=== PATIENT | male | born 1965 | race Caucasian/White ===

== ENCOUNTER 2024-10-15 17:55 | Observation (INO) | payer BC, SELFPAY ==
[2024-10-15] VITALS (18 sets, daily range): BP systolic 135–152; BP diastolic 90–103; PULSE 78–93; RESP 14–20; TEMP 36.4–36.8; O2SAT 95–98; BMI 28.3; BMI 26.7
--- NOTE | 2024-10-15 18:03 | ECG_ITS ---
APPROVED REPORT Exam: Resting ECG HR:90 bpm ECG Measurements Heart Rate 90 AXES UT 136 P 49 QRSd 142 QRS 33 QT 378 T 26 QTc 426 Conclusion SINUS RHYTHM RIGHT BUNDLE BRANCH BLOCK [120+ ms QRS DURATION, UPRIGHT V1, 40+ ms S IN I/aVL/V4/V5/V6] No STEMI Electronically signed by : SHON WEN, 10/16/2024 23:32:40
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
--- NOTE | 2024-10-15 18:26 | XR_ITS ---
PROCEDURE INFORMATION: Exam: XR Chest Exam date and time: 10/15/2024 6:20 PM Age: 59 years old Clinical indication: Pain; Chest pressure; Additional info: Chest pain since Saturday, PT stated he had a visit with his pcp today & they sent him to ED based upon ekg results. TECHNIQUE: Imaging protocol: Radiologic exam of the chest. Views: 2 views. COMPARISON: No relevant prior studies available. FINDINGS: Lungs: Mild scarring and atelectasis in the lower lungs. Pleural spaces: Unremarkable. No pleural effusion. No pneumothorax. Heart/Mediastinum: Unremarkable. No cardiomegaly. Bones/joints: Unremarkable. IMPRESSION: No acute findings.
--- OUTSIDE RECORDS SUMMARY | 2024-10-15 18:26 | XMS_ITS | Data Portability ---
Author Organization [facility] Address [address] [place] [address] Care Team Providers Care Data Support Specialist Name Role Phone PATRICIA VERA Primary Care Provider [phone] PATRICIA VERA Referring Provider Assessment No assessment recorded. Plan of Treatment Reminders Order Date Submit Date Provider Last Modified By Organization Details Last Modified Time Details Appointments None record ed. Lab None record ed. Referral None record ed. Procedures None record ed. Surgeries None record ed. Imaging None record ed. Medication Orders None record ed. Patient TargetsNo targets recorded. Patient InstructionsNo instructions recorded. Reason for Referral None Reported. Results Created Date Observation Date Name Description Value Unit Range Abnormal Flag Note LastModifiedBy Organization Detail LastModifiedTime 04/18/2004/01/2023 MRI, lumba r spine , w/o contr ast No observ ation record ed. [facility] Not Available 2022 12:11:31 04/18/20 23 04/01/2023 MRI, thora cic spine , w/o contr ast No observ ation record ed. [facility] Not Available 2022 12:11:31 05/10/20 23 05/10/2023 MRI, cervi keith spine , w/o contr ast [place] alessandra [place] [id number] [facility] [place] [address] Patien t Name: NA WHEATLEYJIMMY DAVON Nestor hall : [birth year] Patiseamus t 5 Orderi ng Provid er: GIA TIMONE Y EXAM DATE: 2022 EXAM: MR CERVIC AL W/O CONTRA ST HISTOR Y: 58-yea r-old male with pain and numbne ss in his left should er and arm. COMPAR JOAO: None. FINDIN GS: The cervic al spine is normal in alignm ent. There is no sublux ation. There is no fractu re or pathol ogic intrao sseous lesion . There is mild anteri or margin al osteop hytic spurri ng. No parasp inous soft tissue abnorm ality is identi fied. The visual ized spinal cord and print press operator ior fossa of the brain are normal in appear ance. The cranio cervic al juncti on is normal in appear ance. There are mild degene rative change s at C1-C2. C2-C3: There is a broad- based disc bulge/ protru ana and mild endpla te spurri ng. There is mild centra l canal stenos is. There is no neural forami nal stenos is. C3-C4: There is a broad- based disc protru ana and mild endpla te spurri ng. There is mild centra l canal stenos is. There is minima l neural forami nal narrow ing. C4-C5: There is a broad- based disc bulge/ protru ana and endpla te spurri ng. There is mild centra l canal stenos is. There is mild bilate ral neural forami nal narrow ing. C5-C6: There is a mild disc bulge, mild endpla te spurri ng and mild facet arthro aung. There is mild centra l canal stenos is. There is no neural forami nal stenos is. C6-C7: There is a mild disc bulge and mild endpla te spurri ng. There is mild centra l canal stenos is. There is no neural forami nal stenos is. C7-T1: This interv ertebr al disc is essent ially normal in appear ance. The visual ized thorac ic spine are essent ially normal in appear ance. IMPRES ANA: 1. There are mild diffus e degene rative change s in the cervic al spine with mild centra l canal stenos is from C2-C3 throug h C6-C7. Interp reted By: Kody alexis MD Electr onical ly Signed By: Kody alexis MD on 2022 9:27 AM [facility] [address] [place], [address], 05/13/2023 12:00:07 05/10/20 23 05/10/2023 nerve condu ction study /EMG, lower extre mity (PROC ) No observ ation record ed. jackielyle Harding MD [address] [facility] [address], [place], [address], 05/28/2023 14:53:58 05/10/2005/10/2023 XR, lumbo sacra l spine , 4 or more view [address] [address] Patiseamus t Name: NA Falcon : [birth year] Patiseamus t 5 Orderi ng Provid er: ANALI Hall EXAM DATE: 2022 EXAM: XR LUMBAR SPINE AP/LAT /FLEX/ EXT CLINIC AL INFORM ATION: Back pain. IMAGES PROVID ED: AP, latera l and coned- down views of the lumbar spine with additi onal latera l views in flexio n and extens ion. COMPAR JOAO: None. FINDIN GS: Verteb ral body height s are normal . Multil evel disc space reduct ion is seen with anteri or and latera l osteop hytes. No abnorm ality of alignm ent is seen. No instab ility is seen on flexio n or extens ion. Degene rative change s are seen in the facet joints . No radiog raphic eviden ce of injury is noted. IMPRES ANA: Degene rative change s of the lumbar spine. No instab ility. Interp reted By: Christi Walsh MD Electr onical ly Signed By: Christi Walsh MD on 2022 1:00 PM [email or web address] [facility] [address] [place], [address], 06/06/2023 12:20:42 05/22/20 23 05/22/2023 XR, cervi keith spine , 4 or 5 view [place] [address] [place] [address] [address]or [address] Name: NA Falcon : [birth year] [address] 5 Orderi ng Provid er: GIA TIMONE Y EXAM DATE: 2022 EXAM: XR CERVIC AL SPINE AP/LAT /FLEX/ EXT CLINIC AL INFORM ATION: Neck pain. IMAGES PROVID ED: Latera l views of the cervic al spine in flexio n and extens ion. COMPAR JOAO: None. FINDIN GS: FINDIN GS: Verteb ral body height s are normal . Disc spaces are well-m aintai dania. No abnorm ality of alignm ent is seen. No instab ility is seen on flexio n or extens ion. No radiog raphic eviden ce of injury is noted. IMPRES ANA: Normal radiog raphic series of the cervic al spine. No instab ility. Interp reted By: Christi Walsh MD Electr onical ly Signed By: Christi Walsh MD on 2022 11:12 AM [email or web address] [facility] [address], [address], 06/11/2023 16:30:01 06/14/20 23 06/14/2023 MR brain and [facility] [address] [facility] [place] [address] [address]or [address] Name: NA Falcon : [birth year] [address] 5 Orderi ng Provid er: GIA TIMONE Y EXAM DATE: 2022 EXAM: MR BRAIN AND IAC W/WO CONTRA ST HISTOR Y: Left-s ided numbne ss COMPAR JOAO: None. The patien t did not requir e sedati on for this exam. A baseli ne serum creati nine with eGFR was obtain ed prior to inject ion of contra st medium due to the patien ts risk factor s for AMY. Calcul ated eGFR at time of exam was GFR>90 FINDIN GS: The ventri cles are symmet samia, normal in size. No substa ntial atroph y. There is no mass, mass effect , or midlin e shift. There is no abnorm al extra- axial fluid, intrac ranial hemorr marely, or infarc tion. The diffus ion weight ed sequen chantal are normal . There are no signif icant perive ntricu lar white matter change s. After intrav enous admini strati on of 7.[address] ([facility] [address]-0 1), there is no abnorm al enhanc ement in the brain. There is no mass or abnorm al enhanc ement along the crania l nerves or in the software intern al audito ry canals . The software intern al caroti d and basila r flow-v oids are normal . There is minima l mucosa l thicke cm in the parana toney sinuse s. IMPRES ANA: 1. No signif icant intrac ranial findin g Interp reted By: Yousif Monte MD Electr onical ly Signed By: Yousif Monte MD on 2022 1:48 PM [facility] [address] [place], [address], 07/03/2023 22:11:34 Result Notes None recorded. Procedures Surgical History Date Name Laterality Status Provider Name and Address Organization Details Recorded Time 997 reconstruction of nose completed [facility] 04/17/2023 14:49:08 980 repair of inguinal hernia completed [facility] 04/17/2023 14:48:54 Imaging Results Imaging Date Name Status LastModified by Organiz ation Details LastModified Time 04/01/2023 MRI, lumbar spine, w/o contrast completed [facility] Information not available 04/18/2023 12:11:31 04/01/2023 MRI, thoracic spine, w/o contrast completed [facility] Information not available 04/18/2023 12:11:31 05/10/2023 MRI, cervical spine, w/o contrast [facility] [address] [place], [address], 05/13/2023 12:00:07 05/10/2023 nerve conduction study/EMG, lower extremity (PROC) completed jose l Harding MD [address] [facility] [address], [place], [address], 05/28/2023 14:53:58 05/10/2023 XR, lumbosacral spine, 4 or more view completed [email or web address] [facility] [address] [place], [address], 06/06/2023 12:20:42 05/22/2023 XR, cervical spine, 4 or 5 view completed [email or web address] [facility] [address] [place], [address], 06/11/2023 16:30:01 06/14/2023 MR brain and IAC w/wo contrast completed [facility] [address] [place], [address], 07/03/2023 22:11:34 Procedure Notes None recorded. Medical Equipment None Reported. Allergies Allergen ID Allergen Name Allergen Category Reaction Reaction Severity Criticality Documentation Date Start Date Code Code System Note Provider Name and Address Organization Details Recorded Time 324729 Iodinated contrast media (substanc e) medicatio n Not available Not available Not available 05/25/20162013 71883 2003 SNOMED Comme nt: Creat ed By: Evangelist Bethea ca;Cr eated Date: 2013 2:55: 36 PM; Not Available [facility] 06:21:00 984054 iodine medicatio n Not available Not available Not available 04/17/2023 5933 RxNorm Lucinda Carrion [facility] 3 14:47:32 Medications Name Sig Start Date Stop Date Status Note LastModified by Organization Details LastModified Time cyclobenza chrissy 10 mg tablet Daily active Frequency : daily;Med ication Descripti on: cyclobenz aprine; Route:ora l; refills:0 Not Available Not Available Not Available prednisone 10 mg tablet TAKE 1 TABLET BY MOUTH 2 TIMES PER DAY active Not Available Not Available No t Available cetirizine 10 mg tablet active Medicatio n Descripti on: cetirizin e; Route:ora l; refills:0 Not Available Not Available Not Available glipizide ER 10 mg tablet, extended release 24 hr TAKE 1 TABLET BY MOUTH DAILY. active Not Available Not Available No t Available prednisone 20 mg tablet TAKE 1 TABLET BY MOUTH TWO TIMES DAILY active Not Available Not Available No t Available metformin 850 mg tablet TAKE 1 TABLET BY MOUTH THREE TIMES DAILY active Not Available Not Available No t Available Nexium 40 mg capsule,de layed release TAKE 1 CAPSULE BY MOUTH ONCE DAILY active Not Available Not Available No t Available metronidaz ole 500 mg tablet TAKE 1 TABLET BY MOUTH THREE TIMES DAILY active Not Available Not Available No t Available Benadryl 25 mg tablet Bedtime active Duration: 1 day;Instr uctions: Take one capsule at noon and in the evening the day prior to procedure and then take one capsule the morning of procedure .;Frequen cy: hs;Medica tion Descripti on: diphenhyd ramine; Dosage:as directed; Route:ora l; refills:0 ; Quantity: 3 tablet Not Available Not Available Not Available ciprofloxa amy 500 mg tablet TAKE 1 TABLET BY MOUTH 2 TIMES DAILY active Not Available Not Available No t Available tramadol 50 mg tablet Daily active Frequency : daily;Med ication Descripti on: tramadol; Route:ora l; refills:0 Not Available Not Available Not Available simvastati n 40 mg tablet Daily active Frequency : daily;Med ication Descripti on: simvastat in; Route:ora l; refills:0 Not Available Not Available Not Available ropinirole 0.5 mg tablet TAKE 1 TABLET BY MOUTH TWO TIMES DAILY active Not Available Not Available No t Available lisinopril 10 mg tablet TAKE 1 TABLET BY MOUTH DAILY. active Not Available Not Available No t Available diclofenac sodium 75 mg tablet,del ayed release TAKE 1 TABLET BY MOUTH TWICE DAILY NEEDED active Not Available Not Available No t Available amoxicilli n 875 mg-potassi um clavulanat e 125 mg tablet TAKE 1 TABLET BY MOUTH TWICE DAILY. active Not Available Not Available No t Available escitalopr am 20 mg tablet TAKE 1 TABLET BY MOUTH ONCE DAILY. active Not Available Not Available No t Available Lexapro 10 mg tablet Daily active Duration: 30 days;Freq uency: daily;Med ication Descripti on: escitalop aurea; Dosage:1; Route:ora l; refills:0 ; Quantity: 30 tablet Not Available Not Available Not Available pregabalin 200 mg capsule TAKE 1 CAPSULE BY MOUTH TWO TIMES DAILY active Not Available Not Available No t Available Lyrica 75 mg capsule Two times a day active Frequency : bid;Medic ation Descripti on: pregabali n; Route:ora l; refills:0 Not Available Not Available Not Available Januvia 100 mg tablet TAKE 1 TABLET BY MOUTH DAILY active Not Available Not Available No t Available BD Ultra-Fine Katie Pen Needle 32 gauge x USE DIRECTED. active Not Available Not Available No t Available sodium,pot assium,mag sulfates 17.5 gram-3.13 gram-1.6 gram oral soln TAKE DIRECTED BY DR. VEGA''S OFFICE active Not Available Not Available No t Available Tradjenta 5 mg tablet TAKE 1 TABLET BY MOUTH DAILY. active Not Available Not Available No t Available Victoza 3-Colin 0.6 mg/0.1 mL (18 mg/3 mL) subcutaneo us pen injector INJECT 1.8 MG SUBCUTANE OUSLY ONCE DAILY active Not Available Not Available No t Available Farxiga 10 mg tablet TAKE 1 TABLET BY MOUTH DAILY active Not Available Not Available No t Available Mounjaro 7.5 mg/0.5 mL subcutaneo us pen injector INJECT DIRECTED ONCE WEEKLY active Not Available Not Available No t Available Mounjaro 5 mg/0.5 mL subcutaneo us pen injector INJECT ONCE WEEKLY DIRECTED. active Not Available Not Available No t Available Mounjaro 2.5 mg/0.5 mL subcutaneo us pen injector INJECT 2.5 MG SUBCUTANE OUSLY ONCE WEEKLY active Not Available Not Available No t Available Ozempic 0.25 mg or 0.5 mg (2 mg/3 mL) subcutaneo us pen injector INJECT 0.25MG ONCE WEEKLY FOR 4 WEEKS THEN INCREASE TO 0.5 MG EVERY WEEK active Not Available Not Available No t Available Vitals Date Recorded Body height Body mass index (BMI) Body weight Systolic blood pressure Diastolic blood pressure Provider Name and Address Organization Details Last Updated DateTime 04/17/2023 175.26 cm 27.9 kg/m2 17237.9 6 g 120 mm[Hg] 80 mm[Hg] [facility] 14:47:15 Date Recorded Body height Body mass index (BMI) Body weight Systolic blood pressure Diastolic blood pressure Provider Name and Address Organization Details Last Updated DateTime 05/22/2023 175.26 cm 27.9 kg/m2 24545.9 6 g 120 mm[Hg] 80 mm[Hg] [facility] 08:49:57 Social History None recorded. Functional Status None recorded. Mental Status None recorded. Family History Relationship Description Onset Age of this Age Resolved Age Notes LastModified by Organization Details LastModified Time Unspecified Relation Hypertensive disorder [email or web address] Not available 14:47:51 Unspecified Relation Heart disease [email or web address] Not available 14:48:08 Unspecified Relation Acute stroke [email or web address] Not availabl e 04/17/2023 14:48:17 Medical History No medical history recorded. Past Encounters Encounter ID Performer Location Encounter Start Date Encounter Closed Date Diagnosis/Indication Diagnosis SNOMED-CT Code Diagnosis ICD10 Code Diagnosis Note [id number] GIA ABRAHAM MD [facility] [address] [place] [address] 04/17/2023 13:44:29 04/18/2023 04:29:48 Lumbar radiculopathy [id number] M54.16 Unfortmeme hurley we are unable to view his lumbar MRI as both thoracic MRIs were downloaded onto the 2 discs. We were able to review the report. They will obtain a new lumbar MRI disc for us. I would like for him to undergo lower extremity nerve conduction studies due to his ongoing neuropathy . I will also like to obtain an MRI of his cervical spine as he is hyperrefle xic with paresthesi as in his hand. I will get cervical AP lateral flexion-ex tension x-rays as well as lumbar flexion-ex tension x-rays. We will have him return after the studies are available to us to review them and discuss and formulate a management plan. I have answered all his questions. He is happy with the management plan. [id number] GIA ABRAHAM MD [facility] [address] [place] [address] 05/22/2023 08:36:10 05/26/2023 04:08:08 Lumbar radiculopathy [id number] M54.16 Long discussion with him and his today. He has significan t hemorrhage in the right eye and they noted they have had an optometris t state he has hemorrhage in back of eye. I will refer him for a formal ophtho eval. I will also have him undergo a brain MRI with the facial numbness and hyperrefle kamilah of upper extremitie s. If all clear and they are agreeable, we will proceed with lumbar L4-5 decompress ion/diskec zoila. I have answered all of their questions. They are happy with management plan. Health Concerns Section Related Observation LastModified by Organization Detai ls LastModified Time None Recorded Concern Status LastModified by Organization Details LastModified Time None Recorded Advance Directives Directive None Recorded Payers Encounter Date Sequence Insurance Name Policy Number Policy Santana Covered Member ID Santana Member ID Guarantor Name 04/17/2023 1 [place] [employer] BLUE ACCESS (PPO) [id number] Sarai Weber [id number] Weber 05/22/2023 1 [place] [employer] [place]) [id number] Sarai Weber [id number] Weber Notes Date Note Type Note Provider Name and Address Organization Details Recorded Time 04/17/2023 text/html Patient is a 58-year-old gentleman here today in neurosurgical consultation for low back and lower extremity pain. He states he has had progressive low back pain for many years but its been significantly worse over the last several months. He states it radiates mainly into his left leg. He has burning sharp sensation radiating down mainly the anterior lateral thigh with burning dysesthesias into his foot. He is a diabetic and states he was diagnosed with neuropathy. He states standing makes the pain worse. Stairs are difficult. He is unable to sleep secondary to the pain. He did physical therapy but was unable to complete this due to the pain. He is not received any pain management. No other neurologic complaints. Imaging: I personally reviewed his thoracic MRI which demonstrates a patent central canal and some mild to moderate disc degeneration and unfortunately his lumbar MRI was not uploaded onto the disc but did demonstrate moderate central canal stenosis at L3-4 and L4-5 with significant facet arthropathy GIA ABRAHAM MD [facility] [place], [address], [facility] 04/17/2023 16:00:57 05/22/2023 text/html Patient is a 58-year-old gentleman here today in neurosurgical follow up for low back and lower extremity pain. At his last appointment we had wanted for him to undergo a nerve conduction study as well as xrays and lumbar mri. He is here today stating his balance is somewhat better. His low back pain mainly on the left side is persistent along with numbness and tingling in left leg and arm/hand. The left facial numbness still persists and is quite troubling. Imaging: I personally reviewed his lumbar MRI which demonstrates severe spinal stenosis at L4-5. No instability on lumbar flex/ext xrays mild chronic L5 radiculopathy on nerve conduction/emg MD Omero [place], [address], [facility] 05/25/2023 13:05:35
--- OUTSIDE RECORDS SUMMARY | 2024-10-15 18:26 | XMS_ITS ---
Author Organization Unknown Medications Medication Instructions Effective Dates (start - stop) Status esomeprazole 40 MG Delayed Release Oral Capsule [Nexium] 7989-02-13C94:00:00.000+ 00:00 - Completed esomeprazole 40 MG Delayed Release Oral Capsule [Nexium] 7470-88-46O17:00:00.000+ 00:00 - Completed dapagliflozin 10 MG Oral Tab let [Farxiga] 2788-75-33K18:00:00.000+00:0 0 - Completed 3 ML liraglutide 6 MG/ML Pen Injector [Victoza] 8688-30-43I16:00:00.000+00:0 0 - Completed esomeprazole 40 MG Delayed Release Oral Capsule [Nexium] 8208-16-00N82:00:00.000+ 00:00 - Completed esomeprazole 40 MG Delayed Release Oral Capsule [Nexium] 1928-86-61B62:00:00.000+ 00:00 - Completed sitagliptin 100 MG Oral Tabl et [Januvia] 2196-99-94Q66:00:00.000+00:0 0 - Completed esomeprazole 40 MG Delayed Release Oral Capsule [Nexium] 1947-77-49N66:00:00.000+ 00:00 - Completed dapagliflozin 10 MG Oral Tab let [Farxiga] 1126-45-93I64:00:00.000+00:0 0 - Completed 3 ML liraglutide 6 MG/ML Pen Injector [Victoza] 0534-43-64A14:00:00.000+00:0 0 - Completed sitagliptin 100 MG Oral Tabl et [Januvia] 1482-18-24Q01:00:00.000+00:0 0 - Completed esomeprazole 40 MG Delayed Release Oral Capsule [Nexium] 8426-23-00V64:00:00.000+ 00:00 - Completed sitagliptin 100 MG Oral Tabl et [Januvia] 1316-90-65V95:00:00.000+00:0 0 - Completed 3 ML liraglutide 6 MG/ML Pen Injector [Victoza] 6258-90-33H38:00:00.000+00:0 0 - Completed esomeprazole 40 MG Delayed Release Oral Capsule [Nexium] 0904-31-69N96:00:00.000+ 00:00 - Completed esomeprazole 40 MG Delayed Release Oral Capsule [Nexium] 9084-29-33T33:00:00.000+ 00:00 - Completed dapagliflozin 10 MG Oral Tab let [Hillxiga] 6899-20-80B49:00:00.000+00:0 0 - Completed 3 ML liraglutide 6 MG/ML Pen Injector [Victoza] 1419-74-51E49:00:00.000+00:0 0 - Completed 3 ML liraglutide 6 MG/ML Pen Injector [Victoza] 7607-12-69X80:00:00.000+00:0 0 - Completed esomeprazole 40 MG Delayed Release Oral Capsule [Nexium] 4731-71-01W77:00:00.000+ 00:00 - Completed esomeprazole 40 MG Delayed Release Oral Capsule [Nexium] 9295-62-35B38:00:00.000+ 00:00 - Completed escitalopram 20 MG Oral Tablet 2 871-19-96C05:00:00.000+00:00 - Completed metronidazole 500 MG Oral Tablet 7456-96-88F86:00:00.000+00:00 - Completed escitalopram 20 MG Oral Tablet 2 516-25-65T03:00:00.000+00:00 - Completed pregabalin 200 MG Oral Capsule 2 067-03-04T11:00:00.000+00:00 - Completed escitalopram 20 MG Oral Tablet 2 043-67-32H06:00:00.000+00:00 - Completed metformin hydrochloride 850 MG Oral Tablet 0771-88-36H55:00:00.000+00:0 0 - Completed pregabalin 200 MG Oral Capsule 2 551-77-80S88:00:00.000+00:00 - Completed pregabalin 200 MG Oral Capsule 2 495-23-93P47:00:00.000+00:00 - Completed pregabalin 200 MG Oral Capsule 2 593-25-98X49:00:00.000+00:00 - Completed pregabalin 200 MG Oral Capsule 2 405-37-61C52:00:00.000+00:00 - Completed pregabalin 200 MG Oral Capsule 2 526-39-95N59:00:00.000+00:00 - Completed pregabalin 200 MG Oral Capsule 2 808-25-09F38:00:00.000+00:00 - Completed metformin hydrochloride 850 MG Oral Tablet 1550-79-12L82:00:00.000+00:0 0 - Completed metformin hydrochloride 850 MG Oral Tablet 2523-67-74O24:00:00.000+00:0 0 - Completed escitalopram 20 MG Oral Tablet 2 132-65-65R02:00:00.000+00:00 - Completed escitalopram 20 MG Oral Tablet 2 379-66-04E91:00:00.000+00:00 - Completed escitalopram 20 MG Oral Tablet 2 236-99-52P74:00:00.000+00:00 - Completed lisinopril 10 MG Oral Tablet 09-01-04:00:00.000+00:00 - Completed lisinopril 10 MG Oral Tablet 202 09-04-04:00:00.000+00:00 - Completed lisinopril 10 MG Oral Tablet 202 09-02-17:00:00.000+00:00 - Completed pregabalin 200 MG Oral Capsule 2 651-37-22J33:00:00.000+00:00 - Completed lisinopril 10 MG Oral Tablet 202 08-31-12:00:00.000+00:00 - Completed pregabalin 200 MG Oral Capsule 2 744-50-18L23:00:00.000+00:00 - Completed metformin hydrochloride 850 MG Oral Tablet 7477-61-65N44:00:00.000+00:0 0 - Completed pregabalin 200 MG Oral Capsule 2 785-78-20E32:00:00.000+00:00 - Completed escitalopram 20 MG Oral Tablet 2 245-68-23M90:00:00.000+00:00 - Completed lisinopril 10 MG Oral Tablet 202 08-10-07:00:00.000+00:00 - Completed ropinirole 0.5 MG Oral Tablet 21-10-04:00:00.000+00:00 - Completed ropinirole 0.5 MG Oral Tablet 22-05-18:00:00.000+00:00 - Completed ciprofloxacin 500 MG Oral Tablet 3192-55-73U49:00:00.000+00:00 - Completed ropinirole 0.5 MG Oral Tablet 20-11-17:00:00.000+00:00 - Completed 24 HR glipizide 10 MG Extend ed Release Oral Tablet 3903-64-12C33:00:00.000+00:0 0 - Completed lisinopril 10 MG Oral Tablet 202 08-30-12:00:00.000+00:00 - Completed lisinopril 10 MG Oral Tablet 08-09-09:00:00.000+00:00 - Completed 24 HR glipizide 10 MG Extend ed Release Oral Tablet 9869-43-97D25:00:00.000+00:0 0 - Completed 24 HR glipizide 10 MG Extend ed Release Oral Tablet 7355-69-45X47:00:00.000+00:0 0 - Completed ropinirole 0.5 MG Oral Tablet 23-07-13:00:00.000+00:00 - Completed 24 HR glipizide 10 MG Extend ed Release Oral Tablet 3028-33-42J38:00:00.000+00:0 0 - Completed ropinirole 0.5 MG Oral Tablet 21-06-20:00:00.000+00:00 - Completed lisinopril 10 MG Oral Tablet 08-12-05:00:00.000+00:00 - Completed ropinirole 0.5 MG Oral Tablet 22-03-10:00:00.000+00:00 - Completed ropinirole 0.5 MG Oral Tablet 20-01-05:00:00.000+00:00 - Completed 24 HR glipizide 10 MG Extend ed Release Oral Tablet 9829-11-46D10:00:00.000+00:0 0 - Completed ropinirole 0.5 MG Oral Tablet 20 21-04-08:00:00.000+00:00 - Completed ropinirole 0.5 MG Oral Tablet 20 23-08-10:00:00.000+00:00 - Completed ropinirole 0.5 MG Oral Tablet 20 19-02-06:00:00.000+00:00 - Completed 24 HR glipizide 10 MG Extend ed Release Oral Tablet 3490-11-50K30:00:00.000+00:0 0 - Completed 24 HR glipizide 10 MG Extend ed Release Oral Tablet 8483-99-91L20:00:00.000+00:0 0 - Completed 24 HR glipizide 10 MG Extend ed Release Oral Tablet 7227-63-45Z30:00:00.000+00:0 0 - Completed lisinopril 10 MG Oral Tablet 202 08-29-01:00:00.000+00:00 - Completed - 4920-17-60L41:00 :00.000+00:00 - Completed escitalopram 20 MG Oral Tablet 2 645-20-17K91:00:00.000+00:00 - Completed - 5491-57-11E70:00 :00.000+00:00 - Completed prednisone 20 MG Oral Tablet 202 09-03-07:00:00.000+00:00 - Completed - 4740-83-28N48:00 :00.000+00:00 - Completed escitalopram 20 MG Oral Tablet 2 013-46-64Q97:00:00.000+00:00 - Completed ropinirole 0.5 MG Oral Tablet 20 20-09-12:00:00.000+00:00 - Completed linagliptin 5 MG Oral Tablet [Tradjenta] 4381-74-32Y27:00:00.000+00:0 0 - Completed dapagliflozin 10 MG Oral Tab let [Farxiga] 9083-41-78X77:00:00.000+00:0 0 - Completed linagliptin 5 MG Oral Tablet [Tradjenta] 6135-06-10F20:00:00.000+00:0 0 - Completed dapagliflozin 10 MG Oral Tab let [Farxiga] 7478-65-50R36:00:00.000+00:0 0 - Completed dapagliflozin 10 MG Oral Tab let [[facility]] 5777-71-23T98:00:00.000+00:0 0 - Completed linagliptin 5 MG Oral Tablet [Tradjenta] 8048-30-72I76:00:00.000+00:0 0 - Completed linagliptin 5 MG Oral Tablet [Tradjenta] 6566-13-15L35:00:00.000+00:0 0 - Completed dapagliflozin 10 MG Oral Tab let [[facility]] 4536-66-42T86:00:00.000+00:0 0 - Completed dapagliflozin 10 MG Oral Tab let [[facility]] 4079-98-76Z28:00:00.000+00:0 0 - Completed amoxicillin 875 MG / clavula corina 125 MG Oral Tablet 8549-27-29A63:00:00.000+00:0 0 - Completed Patient Care team information Name Category Status Period Participants - - Proposed period not known -
--- OUTSIDE RECORDS SUMMARY | 2024-10-15 18:26 | XMS_ITS | Data Portability ---
Author Organization [facility] & [facility] [place] ADMIN Address [address] [place] [phone] Care Team Providers Care Reconciliation Specialist Name Role Phone SOSA ROBERT Primary Care Provider Assessment No assessment recorded. Plan of Treatment Reminders Order Date Submit Date Provider Last Modified By Organization Details Last Modified Time Details Appointments None recorded. Lab None recorded. Referral None recorded. Procedures None recorded. Surgeries hospital admission 2022 023 [email or web address] Not available 10:52:20 Imaging None recorded. Medication Orders None recorded. Patient TargetsNo targets recorded. Patient InstructionsNo instructions recorded. Reason for Referral None Reported. Results Created Date Observation Date Name Description Value Unit Range Abnormal Flag Note LastModifiedBy Organization Detail LastModifiedTime 10/17/1910/16/2022 GLUCO SE POINT OF CARE note See Note Order ing Provi manuela: Nikolay santiago MD Not Available [place] [address] [place], [address], 10/16/2022 07:36:57 10/17/1910/16/2022 GLUCO SE POINT OF CARE glucose point of care 149 mg/dL 70-99 high Not Available [place] [address] [place], [address], 10/16/2022 07:36:57 10/17/19 23 10/16/2022 GLUCO SE POINT OF CARE performing lab see note [facility]PO - [address] [place] [address] Not Available [place] [address] [place], [address], 10/16/2022 07:36:57 10/17/19 23 10/16/2022 GLUCO SE POINT OF CARE note See Note Order ing Provi manuela: Nikolay santiago MD Not Available [address] , [place], [address], 10/16/2022 10:00:09 10/17/19 23 10/16/2022 GLUCO SE POINT OF CARE glucose point of care 136 mg/dL 70-99 high Not Available [address] , [place], [address], 10/16/2022 10:00:09 10/17/19 23 10/16/2022 GLUCO SE POINT OF CARE performing lab see note [facility] - [facility] [address] [place] [address] Dr [facility] [address] Not Available [address] , [place], [address], 10/16/2022 10:00:09 10/25/19 23 10/24/2022 CBC W/AUT O DIFFE RENTI AL note SEE NOTE Order ing Provi manuela: Nikolay santiago MD Not Available [address] , [place], [address], 10/24/2022 13:03:36 10/25/19 23 10/24/2022 CBC W/AUT O DIFFE RENTI AL white blood cell 7.9 10e3/ uL 4.5-13 .0 normal Not Available [address] , [place], [address], 10/24/2022 13:03:36 10/25/19 23 10/24/2022 CBC W/AUT O DIFFE RENTI AL red blood cell 5.21 10e6/ uL 4.10-5 .70 normal Not Available [address] [place], [address], 10/24/2022 13:03:36 10/25/19 23 10/24/2022 CBC W/AUT O DIFFE RENTI AL hemoglobin 15.7 g/dL 12.0-1 6.9 normal Not Available [place] [address], [place], [address], 10/24/2022 13:03:36 10/25/19 23 10/24/2022 CBC W/AUT O DIFFE RENTI AL hematocrit 45.7 % 36.0-4 9.0 normal Not Available [place] [address], [place], [address], 10/24/2022 13:03:36 10/25/19 23 10/24/2022 CBC W/AUT O DIFFE RENTI AL mean cell volume 88 fL 78.0-9 8.0 normal Not Available [place] [address], [place], [address], 10/24/2022 13:03:36 10/25/19 23 10/24/2022 CBC W/AUT O DIFFE RENTI AL mean cell HGB 30.1 pg 25.0-3 5.0 normal Not Available [place] [address], [place], [address], 10/24/2022 13:03:36 10/25/19 23 10/24/2022 CBC W/AUT O DIFFE RENTI AL mean cell HGB concentratio n 34.4 g/dL 31.0-3 6.0 normal Not Available [place] [address], [place], [address], 10/24/2022 13:03:36 10/25/19 23 10/24/2022 CBC W/AUT O DIFFE RENTI AL red cell distribution width 12.8 % 11.0-1 5.0 normal Not Available [address] [place], [address], 10/24/2022 13:03:36 10/25/19 23 10/24/2022 CBC W/AUT O DIFFE RENTI AL platelet count 267 10e3/ uL 150-40 0 normal Not Available [address] , [place], [address], 10/24/2022 13:03:36 10/25/19 23 10/24/2022 CBC W/AUT O DIFFE RENTI AL immature granulocyte % 1 0-1 normal Not Available [address] , [place], [address], 10/24/2022 13:03:36 10/25/19 23 10/24/2022 CBC W/AUT O DIFFE RENTI AL neutrophil % 57 % 35-75 normal Not Available [address] [place], [place], [address], 10/24/2022 13:03:36 10/25/19 23 10/24/2022 CBC W/AUT O DIFFE RENTI AL lymphocyte % 32 % 10-50 normal Not Available [address] [place], [place], [address], 10/24/2022 13:03:36 10/25/19 23 10/24/2022 CBC W/AUT O DIFFE RENTI AL monocyte % 7 % 0-15 normal Not Available [address] , [place], [address], 10/24/2022 13:03:36 10/25/19 23 10/24/2022 CBC W/AUT O DIFFE RENTI AL eosinophil % 3 % 0-5 normal Not Available [address] , [place], [address], 10/24/2022 13:03:36 10/25/19 23 10/24/2022 CBC W/AUT O DIFFE RENTI AL basophil % 1 % 0-5 normal Not Available [place] [address], [place], [address], 10/24/2022 13:03:36 10/25/19 23 10/24/2022 CBC W/AUT O DIFFE RENTI AL immature granulocyte # 0.04 x1000 /uL 0-0.05 normal Not Available [address] [place], [place], [address], 10/24/2022 13:03:36 10/25/19 23 10/24/2022 CBC W/AUT O DIFFE RENTI AL neutrophil # 4.49 x1000 /uL 1.50-8 .00 normal Not Available [address] [place], [place], [address], 10/24/2022 13:03:36 10/25/19 23 10/24/2022 CBC W/AUT O DIFFE RENTI AL lymphocyte # 2.50 x1000 /uL 1.20-5 .20 normal Not Available [address] [place], [place], [address], 10/24/2022 13:03:36 10/25/19 23 10/24/2022 CBC W/AUT O DIFFE RENTI AL monocyte # 0.58 x1000 /uL 0.30-0 .90 normal Not Available [place] [address], [place], [address], 10/24/2022 13:03:36 10/25/19 23 10/24/2022 CBC W/AUT O DIFFE RENTI AL eosinophil # 0.27 x1000 /uL 0.00-0 .50 normal Not Available [address] [place], [place], [address], 10/24/2022 13:03:36 10/25/19 23 10/24/2022 CBC W/AUT O DIFFE MOHAN EDWARDS basophil # 0.04 x1000 /uL 0.00-0 .30 normal Not Available [address] , [place], [address], 10/24/2022 13:03:36 10/25/19 23 10/24/2022 CBC W/AUT O KLEBER EDWARDS NRBC automated 0.0 /100_ WBC Not Available [address] , [place], [address], 10/24/2022 13:03:36 10/25/19 23 10/24/2022 CBC W/AUT O KLBEER EDWARDS performing lab SEE NOTE - [facility] R [address] [place] [address] DRIVE [facility] [address] Not Available [address] , [place], [address], 10/24/2022 13:03:36 10/25/19 23 10/24/2022 COMP METAB OLIC PANEL note SEE NOTE Order ing Provi manuela: Nikolay santiago MD Not Available [address] , [place], [address], 10/24/2022 13:29:11 10/25/19 23 10/24/2022 COMP METAB OLIC PANEL sodium 139 mmol/ L 136-14 5 normal Not Available [address] , [place], [address], 10/24/2022 13:29:11 10/25/19 23 10/24/2022 COMP METAB OLIC PANEL potassium 4.0 mmol/ L 3.5-5. 1 normal Not Available [address] , [place], [address], 10/24/2022 13:29:11 10/25/19 23 10/24/2022 COMP METAB OLIC PANEL chloride 103 mmol/ L 98-107 normal Not Available [address] , [place], [address], 10/24/2022 13:29:11 10/25/19 23 10/24/2022 COMP METAB OLIC PANEL carbon dioxide 29 mmol/ L 24-33 normal Not Available [address] [place], [place], [address], 10/24/2022 13:29:11 10/25/19 23 10/24/2022 COMP METAB OLIC PANEL anion gap 11.0 mmol/ L 10-20 normal Not Available [address] , [place], [address], 10/24/2022 13:29:11 10/25/19 23 10/24/2022 COMP METAB OLIC PANEL glucose 158 mg/dL 70-99 high Not Available [address] [place], [place], [address], 10/24/2022 13:29:11 10/25/19 23 10/24/2022 COMP METAB OLIC PANEL blood urea nitrogen 8 mg/dL 7-18 normal Not Available [address] [place], [place], [address], 10/24/2022 13:29:11 10/25/19 23 10/24/2022 COMP METAB OLIC PANEL creatinine 0.98 mg/dL 0.70-1 .30 normal Not Available [address] [place], [place], [address], 10/24/2022 13:29:11 10/25/19 23 10/24/2022 COMP METAB OLIC PANEL BUN/creatini ne ratio 8 12-20 low Not Available [address] , [place], [address], 10/24/2022 13:29:11 10/25/19 23 10/24/2022 COMP METAB OLIC PANEL total protein 7.1 g/dL 6.4-8. 2 normal Not Available [address] , [place], [address], 10/24/2022 13:29:11 10/25/19 23 10/24/2022 COMP METAB OLIC PANEL albumin 3.8 g/dL 3.4-5. 0 normal Not Available [address] [place], [place], [address], 10/24/2022 13:29:11 10/25/19 23 10/24/2022 COMP METAB OLIC PANEL globulin 3.3 g/dL 1.5-4. 0 normal Not Available [address] , [place], [address], 10/24/2022 13:29:11 10/25/19 23 10/24/2022 COMP METAB OLIC PANEL albumin/glob ulin ratio 1.2 0.5-2. 0 normal Not Available [address] , [place], [address], 10/24/2022 13:29:11 10/25/19 23 10/24/2022 COMP METAB OLIC PANEL calcium 9.2 mg/dL 8.5-10 .1 normal Not Available [address] , [place], [address], 10/24/2022 13:29:11 10/25/19 23 10/24/2022 COMP METAB OLIC PANEL osmolality serum calculated 278 mOsm/ kg 272-28 8 normal Not Available [address] [place], [address], 10/24/2022 13:29:11 10/25/19 23 10/24/2022 COMP METAB OLIC PANEL glom filtr rate (estimated) > 60 mL/mi n >60 normal Not Available [address] [place], [address], 10/24/2022 13:29:11 10/25/19 23 10/24/2022 COMP METAB OLIC PANEL GFR est (if -amer ican) > 60 mL/mi n >60 normal Not Available [address] , [place], [address], 10/24/2022 13:29:11 10/25/19 23 10/24/2022 COMP METAB OLIC PANEL bilirubin total 0.5 mg/dL 0.2-1. 0 normal Use of this assay is not recom kirk d for patie nts under going treat ment with Eltro mbopa g due to the poten tial for false ly eleva tigist resul ts. Not Available [address] , [place], [address], 10/24/2022 13:29:11 10/25/19 23 10/24/2022 COMP METAB OLIC PANEL SGOT/AST 13 U/L 15-37 low Not Available [address] , [place], [address], 10/24/2022 13:29:11 10/25/19 23 10/24/2022 COMP METAB OLIC PANEL SGPT/ALT 27 U/L 16-63 normal Not Available [address] , [place], [address], 10/24/2022 13:29:11 10/25/19 23 10/24/2022 COMP METAB OLIC PANEL alkaline phosphatase total 80 U/L 46-116 normal Not Available [address] [place], [place], [address], 10/24/2022 13:29:11 10/25/19 23 10/24/2022 COMP METAB OLIC PANEL performing lab SEE NOTE - [facility] R [address] [facility] [address] Not Available [address] , [place], [address], 10/24/2022 13:29:11 10/25/19 23 10/24/2022 LIPAS E note SEE NOTE Order ing Provi manuela: Nikolay santiago MD Not Available [address] , [place], [address], 10/24/2022 13:29:13 10/25/19 23 10/24/2022 LIPAS E lipase 34 U/L 16-77 normal Not Available [address] , [place], [address], 10/24/2022 13:29:13 10/25/19 23 10/24/2022 LIPAS E performing lab SEE NOTE ML - [facility] [address] [facility] [address] Not Available [address] , [place], [address], 10/24/2022 13:29:13 Result Notes None recorded. Problems Name Problem SNOMED Code Status Onset Date Resolution Date Notes Provider Name and Address Organization Details Recorded Time Sleep apnea 87817445 Active Jelena Leonid null, [place] - [facility] - [place] & [place] 3 16:29:34 Hypertensive disorder 83858290 Active Jelena Leonid [place], [place] [facility] [place] [facility] [place] 3 16:30:37 Seasonal allergy 807081574 Active Jelena Leonid null, [place] - [facility] - [facility] & [place] 3 16:30:46 Anxiety 23331211 Active Jelena Leonid null, [place] - [facility] - [facility] & [place] 3 16:30:53 Diabetes mellitus 90567090 Active Jelena Leonid null, [place] - [facility] - [place] [facility] [place] 3 16:31:00 Restless legs 66306537 Active Jelena Leonid null, [place] - [facility] - [facility] & [place] 3 16:31:08 Gastroesophage al reflux disease 502038315 Active Jelena Jaquez null, [place] - [facility] - [place] & [place] 3 16:31:15 Benign prostatic hyperplasia without outflow obstruction 365795760 Active Jelena Leonid null, [place] - [facility] - [place] & [place] 3 16:31:28 Vitamin D deficiency 08617036 Active Jelena Gilletterod null, [place] - [facility] - [place] & [place] 3 16:31:48 Fatigue 48842329 Active Jelena Leonid null, [place] - [facility] - [place] & [place] 3 16:31:56 Neuropathy 459692994 Active Jelena Gilletterod null, [place] - [facility] - [place] & [place] 3 16:32:05 Diverticulitis 161676359 Active 2022 Jeronimo England MD [address] [place] [address], [phone], [place] - [facility] & [place] 3 13:39:46 Problem Notes None recorded. Procedures Surgical History Date Name Laterality Status Provider Name and Address Organization Details Recorded Time 10/17/19 23 Colonoscopy completed Sosa Peña [facility] & [place] 10/24/2022 13:14:37 Reconstruction of nose completed Jelena Mason [facility] & [place] 10/18/2022 16:32:39 hernia repair completed Jelena Mason [facility] & [place] 10/18/2022 16:32:47 Imaging Results None recorded. Procedure Notes None recorded. Medical Equipment None Reported. Allergies Allergen ID Allergen Name Allergen Category Reaction Reaction Severity Criticality Documentation Date Start Date Code Code System Note Provider Name and Address Organization Details Recorded Time 70863 Iodinated contrast media (substanc e) medicatio n Not available Not available Not available 10/22/2022 38232 2003 SNOMED Jelena saldivar, [place] - [facility] - [place] & [place] 3 15:51:32 Medications Name Sig Start Date Stop Date Status Note LastModified by Organization Details LastModified Time vitamin d3 25 mcg (1000 ut) TAKE 1 TABLET BY MOUTH DAILY active Not Available Not Available No t Available azithromyci n 250 mg tablet TAKE 2 TABLETS BY MOUTH THE FIRST DAYS DOSE THEN TAKE 1 TABLET EACH DAY FOR 4 MORE DAYS. 10/18 completed Not Available Not Available Not Available glipizide ER 10 mg tablet, extended release 24 hr TAKE 1 TABLET BY MOUTH DAILY. active Not Available Not Available No t Available prednisone 20 mg tablet TAKE 1 TABLET BY MOUTH TWO TIMES DAILY 12/31 completed Not Available Not Available Not Available metformin 850 mg tablet TAKE 1 TABLET BY MOUTH TWO TIMES DAILY active Not Available Not Available No t Available Nexium 40 mg capsule,del ayed release TAKE 1 CAPSULE BY MOUTH ONCE DAILY active Not Available Not Available No t Available metronidazo le 500 mg tablet TAKE 1 TABLET BY MOUTH THREE TIMES DAILY 12/31 completed Not Available Not Available Not Available ciprofloxac in 500 mg tablet TAKE 1 TABLET BY MOUTH 2 TIMES DAILY 12/31 completed Not Available Not Available Not Available ropinirole 0.5 mg tablet TAKE 1 TABLET BY MOUTH TWO TIMES DAILY active Not Available Not Available No t Available lisinopril 10 mg tablet TAKE 1 TABLET BY MOUTH ONCE DAILY. active Not Available Not Available No t Available diclofenac sodium 75 mg tablet,hank yed release TAKE 1 TABLET BY MOUTH TWICE DAILY NEEDED active Not Available Not Available No t Available amoxicillin 875 mg-potassiu m clavulanate 125 mg tablet TAKE 1 TABLET BY MOUTH TWICE DAILY. 10/18 completed Not Available Not Available Not Available escitalopra m 20 mg tablet TAKE 1 TABLET BY MOUTH ONCE DAILY. active Not Available Not Available No t Available pregabalin 100 mg capsule TAKE 1 CAPSULE BY MOUTH TWICE DAILY 10/18 completed Not Available Not Available Not Available pregabalin 150 mg capsule TAKE 1 CAPSULE BY MOUTH TWICE DAILY 10/18 completed Not Available Not Available Not Available pregabalin 200 mg capsule TAKE 1 (ONE) CAPSULE BY MOUTH TWO TIMES DAILY active Not Available Not Available No t Available Januvia 100 mg tablet TAKE 1 TABLET BY MOUTH DAILY 10/18 completed Not Available Not Available Not Available BD Ultra-Fine Katie Pen Needle 32 gauge x USE DIRECTED. active Not Available Not Available No t Available sodium,pota ssium,mag sulfates 17.5 gram-3.13 gram-1.6 gram oral soln TAKE DIRECTED BY DR. ENGLAND''S OFFICE 10/18 completed Not Available Not Available Not Available Tradjenta 5 mg tablet TAKE 1 TABLET BY MOUTH DAILY. 12/31 completed Not Available Not Available Not Available Victoza 3-Colin 0.6 mg/0.1 mL (18 mg/3 mL) subcutaneou s pen injector INJECT 1.8 MG SUBCUTANE OUSLY ONCE DAILY active Not Available Not Available No t Available Farxiga 10 mg tablet TAKE 1 TABLET BY MOUTH DAILY. 12/31 completed Not Available Not Available Not Available Dexcom G6 Sensor device USE DIRECTED. 10/22 completed Not Available Not Available Not Available Dexcom G6 Transmitter device USE DAILY DIRECTED 10/22 completed Not Available Not Available Not Available Ozempic 0.25 mg or 0.5 mg (2 mg/3 mL) subcutaneou s pen injector INJECT 0.25MG ONCE WEEKLY FOR 4 WEEKS THEN INCREASE TO 0.5 MG EVERY WEEK active Not Available Not Available No t Available Vitals Date Recorded Body height Body mass index (BMI) Body weight Provider Name and Address Organization Details Last Updated DateTime 10/22/2022 175.26 cm 29.5 kg/m2 87627.47 g Jelena Jaquez [place] - [facility] & [place] 10/22/2022 15:51:19 Date Recorded Body height Body mass index (BMI) Body weight Body temperature Heart rate Respiratory rate Systolic blood pressure Diastolic blood pressure Provider Name and Address Organization Details Last Updated DateTime 3 175.26 cm 30.4 kg/m2 19352.0 3 g 98.8 [degF] 79 /min 18 /min 150 mm[Hg] 88 mm[Hg] Sosa Peña [place] - [facility] & [place] 13:12:06 Date Recorded Body height Body mass index (BMI) Body weight Oxygen saturation Oxygen saturation in Arterial blood by Pulse oximetry Heart rate Respiratory rate Systolic blood pressure Diastolic blood pressure Provider Name and Address Organization Details Last Updated DateTime 3 175.26 cm 29.5 kg/m2 14548.4 7 g 97 % 97 % 77 /min 18 /min 144 mm[Hg] 90 mm[Hg] Lianne Guerrero [facility] & [place] 3 10:28:18 Date Recorded Body height Body mass index (BMI) Body weight Body temperature Heart rate Systolic blood pressure Diastolic blood pressure Provider Name and Address Organization Details Last Updated DateTime 3 175.26 cm 29.5 kg/m2 66621.4 7 g 98 [degF] 95 /min 112 mm[Hg] 75 mm[Hg] Kurt Martinez [facility] & [place] 3 09:05:37 Social History Question Answer Notes LastModified by Organizat ion Details LastModified Time Tobacco Smoking Status Never Smoker Jelena Jaquez janna, [facility] & [place] 10/18/2022 16:32:27 What Is Your Level Of Alcohol Consumption? None Information not available 10/24/2022 What Is Your Level Of Caffeine Consumption? Moderate Information not available 10/24/2022 What Type Of Diet Are You Following? REGULAR Information not available 10/24/2022 Do You Use Any Illicit Or Recreational Drugs? No Information not available 10/24/2022 Sex: Unknown Functional Status Question Answer Note LastModified by Organization D etails LastModified Time What is your exercise level? Moderate Information not available 10/24/2022 Mental Status None recorded. Family History Relationship Description Onset Age of this Age Resolved Age Notes LastModified by Organization Details LastModified Time Mother Hypertensive disorder [email or web address] Not available 2022 16:32:18 Mother Parkinson's disease [email or web address] Not available 2022 13:13:46 Father Alzheimer's disease [email or web address] Not available 2022 13:13:38 Medical History Condition Response Coronary Artery Disease N Gout N None N Colon Cancer N Kidney Stones Y Hyperthyroidism N Depression N COPD N Hypothyroidism N Osteoporosis/Osteopenia N Diverticulitis/Diverticulosis N Colon Polyps Y Anxiety Disorder Y Diabetes Y Bleeding Disorder N Arthritis N Seizures/Epilepsy N Tuberculosis N Hyperlipidemia Y Cancer N Stroke N Asthma N Sleep Apnea Y GERD/Reflux Y Hepatitis N Cirrhosis N Liver Disease N Heart Disease N Hypertension Y Kidney Disease N Past Encounters Encounter ID Performer Location Encounter Start Date Encounter Closed Date Diagnosis/Indication Diagnosis SNOMED-CT Code Diagnosis ICD10 Code Diagnosis Note [id number] Slime Baumann MD [facility] [address] [place] [address] [place] [phone] 10/22/2022 15:18:43 10/22/2022 16:14:51 Perforation of nasal septum 83623616 J34.89 [id number] Jeronimo England MD [facility]ology [address] [place] [address],[facility] [place] [address] 10/24/2022 13:01:24 10/24/2022 13:43:38 Diverticulitis 906402041 K57.92 the patient has signs and symptoms that are concerning for diverticul itis. The patient is febrile white count is normal, but given the degree of pain that the patient is experienci ng, and increasing nausea issues after some discussion I was able to convince the patient to come into the hospital for IV fluids and IV antibiotic s. And to obtain a CT scan of the abdomen. Initially would maintain the patient NPO, once pain has improved will start the patient on clear liquids. Antiemetic s and pain medicines as needed. Plan1. Direct admit2. IV antibiotic s Rocephin and Flagyl3. Serial examinatio ns in last4. CT scan of abdomen and pelvis, non contrasted due to IV contrast allergy5. IV fluids, would give this patient a 1 L IV fluid bolus initially, then IV fluids at approximat mei 125 cc an hour.6. Once patient's comprehens toan metabolic panel returns , replete electrolyt es as needed7. n p.o. at this time [id number] Slime Baumann MD [facility] [address] [place] [address] [place] [phone] 12/31/2022 10:18:20 12/31/2022 10:53:52 Perforation of nasal septum 48122876 J34.89 [id number] Slime Baumann MD [facility] [address] [place] [address] 02/11/2023 08:59:21 02/11/2023 09:21:40 Perforation of nasal septum 96027259 J34.89 Health Concerns Section Related Observation LastModified by Organization Detai ls LastModified Time None Recorded Concern Status LastModified by Organization Details LastModified Time None Recorded Advance Directives Directive None Recorded Payers Encounter Date Sequence Insurance Name Policy Number Policy Santana Covered Member ID Santana Member ID Guarantor Name 10/22/2022 1 [place] [id number] 0 Sarai P Weber [id number] Avel Boateng Weber 10/24/2022 1 [place] [id number] Sarai P Weber [id number] Avel Pageaster 12/31/2022 1 [place] [id number] 0 Sarai P Weber [id number] Avel Boateng Weber 02/11/2023 1 [place] [id number] 0 Sarai P Weber [id number] Avel [facility] Notes Date Note Type Note Provider Name and Address Organization Details Recorded Time 10/22/2022 text/html Patient is here today for a hole in his septum, states the hole got there from surgery back in . States Dr. Parrish drilled a hole through his nose and has since gotten bigger. States he does have nose bleed at least once daily, the hole is big enough he can put a q-tip through. He states that his nose initially whistled but this has stopped. He denies any intranasal drug use or Afrin use. Slime Baumann MD [address] [facility], [place], [address], [place] - [facility] - [place] & [place] 10/26/2022 12:38:40 10/24/2022 text/html 57-year-old male who presents in follow-up after a recent colonoscopy. The patient called earlier today reporting that he has been having some abdominal pain. This started about 24 hours after his procedure. Patient notes that he thought it was just normal at 1st but it has gotten worse across time, we brought him in for evaluation noted this morning he had an episode of vomiting before that he had had no vomiting. He has had no diarrhea, he has had no fevers or chills, no melena or bright red blood per rectum. His colonoscopy demonstrated 2 polyps that were removed by cold snare. One was an adenoma. Patient did have diverticulosis noted. Jeronimo England MD [address] [place] [address],[address], [place], [address], [facility] & [place] 10/24/2022 13:44:17 12/31/2022 text/html Patient is here for placement of a nasal septal button for long standing nasal septal perforation following septoplasty surgery 10+ years ago. Slime Baumann MD [address], [place], [address], [facility] 01/15/2023 08:42:27 02/11/2023 text/html Mr. Weber is here for follow up of placement of a nasal septal button. He reports he is breathing significantly better. He has learned how to remove it and replace it and cleans it about once a week. Slime Baumann MD [address], [place], [id number], [facility] 02/11/2023 10:14:04
[2024-10-15] MEDS: ONDANSETRON 4MG/2ML VIAL 4 MG IV (18:29)
[2024-10-15] MEDS: 0.9 % SODIUM CHLORIDE 1000ML 1,000 ML 999 ML IV (18:29)
[2024-10-15 18:37] LABS: Basophils % 0.4 % (0.1-2.0); Eosinophils # 0.1 K/mm3 (0.0-0.4); Eosinophils % 0.9 % (0.1-12.0); Hematocrit 48.6 % (42.0-52.0); Hemoglobin 17.1 g/dL (14.1-18.0); Lymphocytes # 3.3 K/mm3 (0.7-4.5); Lymphocytes % 34.9 % (10-50); Mean Corpuscular HGB Conc 35.2 g/dL (31.8-35.4); Mean Corpuscular Hemoglobin 30.6 pg (27.0-31.2); Mean Corpuscular Volume 86.9 fl (80-94); Mean Platelet Volume 10.4 fl (7.4-10.4); Monocytes # 0.6 K/mm3 (0.1-1.0); Monocytes % 6.1 % (1.7-9.3); Neutrophils # 5.4 K/mm3 (1.8-7.8); Neutrophils % 57.4 % (37.0-80.0); Nucleated Red Blood Cells # 0 10^3/uL; Nucleated Red Blood Cells % 0 %; Platelet Count 317 K/mm3 (142-424); Red Blood Count 5.59 M/mm3 (4.60-6.20); Red Cell Distribution Width 12.5 % (11.5-17.5); Red Cell Distribution Width-SD 39.5 fL; White Blood Count 9.4 K/mm3 (4.8-10.8)
[2024-10-15 18:41] LABS: Alanine Aminotransferase 36 U/L (12-78); Albumin Level 4.9 g/dl (3.5-5.0); Albumin/Globulin Ratio 1.4 (1.1-1.8); Alkaline Phosphatase 95 U/L (38-126); Aspartate Amino Transferase 31 U/L (17-59); Bilirubin,Total 1.1 mg/dl (0.2-1.3); Blood Urea Nitrogen 14 mg/dl (9-20); Calcium 9.8 mg/dl (8.4-10.2); Carbon Dioxide 29 mmol/L (22.0-30.0); Chloride 96 mmol/L (98-107); Creatinine Clearance Estimated 125 mL/min (50-200); Estimated Glomerular Filt Rate 100 ml/min (>60); GFR (African American) 121 ML/MIN (>60); Globulin 3.5 g/dL (1.3-3.2); Glucose 163 mg/dl (74-100); Lipase 83 U/L (23-300); Sodium 139 mmol/L (136-145); Total Protein,Serum 8.4 g/dl (6.3-8.2)
[2024-10-15 18:42] LABS: INR 0.95 (0.9-1.1); Prothrombin Time 10.7 seconds (10.1-12.5)
[2024-10-15 18:49] LABS: D-Dimer 0.62 ug/mL (0.0-0.5)
[2024-10-15 18:50] LABS: NT Pro Brain Natriuretic Pep. < 20.0 pg/mL (0-125)
[2024-10-15 18:58] LABS: Procalcitonin 0.057 ng/mL (0.0-2.0); Triiodothryronine (T3) Uptake 33 % (23.5-40.5)
[2024-10-15 18:59] LABS: Free Thyroxine Index 2.3 ug/dL (5.93-13.13); T4 (Thyroxine) 7.1 ug/dl (5.53-11.0)
[2024-10-15 19:12] LABS: Thyroid Stimulating Hormone 2.09 uIU/mL (0.465-4.68)
[2024-10-15 19:19] LABS: Microscopic, Urine URINE MICROSCOPIC (MICROSCOPIC)
[2024-10-15 19:27] LABS: Bilirubin,Urine Negative (Negative); Blood, Urine Negative (Negative); Color,Urine YELLOW (Yellow); Glucose,Urine (UA) 3+ (Negative); Ketones,Urine 1+ (Negative); Leukocyte Esterase,Urine Negative (Negative); Nitrate,Urine Negative (Negative); Protein,Urine Negative (Negative); Specific Gravity, Urine 1.015 (1.005-1.030); Urobilinogen,Urine 0.2 EU/dl (0.2)
[2024-10-15 19:58] LABS: Appearance,Urine Slightly Cloudy (Clear)
[2024-10-15 20:16] LABS: Bacteria,Urine Trace /lpf
--- NOTE | 2024-10-15 20:53 | PC.NURSE ---
2nd appiah collected and sent to the lab
--- NOTE | 2024-10-15 21:42 | PC.NURSE ---
Unable to obtain CT scan due to positional IV placement. Pt brought back to room 2 and hooked back to monitoring equipment.
[2024-10-15 21:48] LABS: Troponin I < 0.01 ng/ml (0.00-0.034)
[2024-10-15 21:49] LABS: Troponin I < 0.01 ng/ml (0.00-0.034)
--- NOTE | 2024-10-15 22:23 | P.HP_ITS ---
<Statement entered by Bladimir Trivedi MD - 10/16/24 22:47> Rounded on patient after nurse practitioner. Personally examined and interviewed patient. Agree with exam findings and care plan as documented. History of Present Illness *Admission Date: 10/15/24 *Reason for visit:: Chest pain *History of present illness: A 59-year-old male presents to the emergency department for evaluation of intermittent chest pain since Thursday, October 10, 2024. He describes the pain as pressure starting in the left chest, localizing, then radiating to the right, occurring hourly while awake and lasting approximately 5 minutes. He denies shortness of breath, fever, chills, hemoptysis, hematochezia, melena, nausea, vomiting, or diarrhea. He takes aspirin and a statin (specifics not provided). The history was obtained through interactive discussion with the patient, who is deemed reliable, with no prior records available. On examination, the patient is hypertensive (blood pressure 152/103), with a heart rate of 93, respiratory rate of 18, oxygen saturation 95% on room air, afebrile (temperature 98), and in normal sinus rhythm on bedside monitor. Physical exam reveals clear breath sounds, no increased work of breathing, no adventitious sounds, no reproducible chest pain on palpation, soft nontender abdomen without epigastric pain, rebound, guarding, or rigidity, normal active bowel sounds, and no dependent edema. Diagnostic workup includes labs, urinalysis, and twelve-lead EKG. Labs show WBC 9.4, hemoglobin 17.1, hematocrit 48.6, platelets 317, sodium 139, potassium 4.0, creatinine 0.80, GFR 100, glucose 163, troponin <0.01 (two measurements), NT- proBNP <20.0, D-dimer 0.62, anion gap 18.0, total protein 8.4, globulin 3.5, AST 31, ALT 36, alkaline phosphatase 95, lipase 83, procalcitonin 0.057, TSH 2.09, free T4 index 2.3, and T4 7.1. Urinalysis shows 3+ glucose, 1+ ketones, trace bacteria, and no WBCs or RBCs. EKG shows a new right bundle branch block, no ST elevation. Chest X-ray was not ordered, as PE was excluded by negative D-dimer and YEARS criteria. No initial interventions were administered, as the patient is chest pain-free, and aspirin/statin were deferred (already taken). Indirect discussion with chimney builder Dr. Pascal recommended admission for further evaluation, potentially including heart catheterization. Hospital medicine has admitted the patient in stable condition for cardiac workup. [facility] Disclaimer: The information contained in this section may have been updated after the patient was seen, as this information can be updated by other users. Medical History (Updated 10/16/24 @ 01:00 by Celeste Banks RN) Sleep apnea Kidney stone Diabetes type 2 History of nephrolithotomy with removal of calculi Dehydration Bowel perforation Sepsis Chest pain Neuropathy Restless leg syndrome Surgical History (Updated 10/15/24 @ 23:01 by Celeste Banks RN) H/O inguinal hernia repair Family History (Updated 10/15/24 @ 23:07 by Celeste Banks RN) Mother Heart disease Social History (Updated 10/15/24 @ 23:07 by Celeste Banks RN) Smoking Status: Never smoker alcohol intake: never current occupational status: employed Travel in the last 8 weeks: None Have you lived/traveled outside US in past 30 days?: No Contact w/someone who lives/traveled outside US past 30 days?: No Exposure to someone with infectious disease in past 14 days?: No Do you have a fever (greater than 100.4 F or 38 C)?: No Have you tested positive for COVID-19: No Exposed to someone with COVID-19 in past 14 days?: No Do you have a sore throat?: No Do you have a cough?: No Do you have any weakness?: No Are you experiencing any nausea/vomitting?: No Do you have any diarrhea?: No Are you experiencing any unusual bleeding?: No Do you have any muscle aches/pain?: No Do you have any abdominal pain?: No Are you experiencing loss of taste or smell?: No Review of Systems Review of Systems Review of systems (narrative): 13 point review of systems negative except as listed in HPI Meds Home Medications and Allergies Home Medications ?Medication ?Instructions ?Recorded ?Confirmed ?Type cetirizine 10 mg tablet 10 mg PO HS 10/15/24 10/15/24 History cholecalciferol (vitamin D3) 25 25 mcg PO DAILY 10/15/24 10/15/24 History mcg (1,000 unit) tablet (Vitamin D3) dapagliflozin propanediol 10 mg 10 mg PO DAILY 10/15/24 10/15/24 History tablet (Farxiga) escitalopram oxalate 20 mg tablet 20 mg PO DAILY 10/15/24 10/15/24 History (Lexapro) esomeprazole magnesium 40 mg 40 mg PO DAILY 10/15/24 10/15/24 History capsule,delayed release (Nexium) evolocumab 140 mg/mL subcutaneous 140 mg SQ DIRECTED 10/15/24 10/15/24 History pen injector (Repatha SureClick) lisinopril 10 mg tablet 10 mg PO DAILY 10/15/24 10/15/24 History pregabalin 200 mg capsule 200 mg PO BID 10/15/24 10/15/24 History ropinirole 0.5 mg tablet 0.5 mg PO BID 10/15/24 10/15/24 History tirzepatide 10 mg/0.5 mL 10 mg SQ WEEKLY 10/15/24 10/15/24 History subcutaneous pen injector (Mounjaro) New Prescriptions to Start Prescriptions: Allergies Allergy/AdvReac Type Severity Reaction Status Date / Time Iodinated Contrast Media Allergy Anaphylaxis Verified 10/15/24 18:02 Exam Data for Last 24 hours Vital signs and Labs for Last 24 Hours: Temp Pulse Resp BP Pulse Ox O2 Del Method 98.3 F 89 14 136/96 H 97 Room Air 10/15/24 18:05 10/15/24 20:13 10/15/24 20:13 10/15/24 20:13 10/15/24 20:13 10/15/24 20:13 Laboratory Results - last 24 hr 10/15/24 18:05: WBC 9.4, RBC 5.59, Hgb 17.1, Hct 48.6, MCV 86.9, MCH 30.6, MCHC 35.2, RDW 12.5, Plt Count 317, MPV 10.4, Neut % (Auto) 57.4, Lymph % (Auto) 34.9, [place] % (Auto) 6.1, Eos % (Auto) 0.9, Baso % (Auto) 0.4, Neut # (Auto) 5.4, Lymph # (Auto) 3.3, [place] # (Auto) 0.6, Eos # (Auto) 0.1, Baso # (Auto) 0.0, PT 10.7, INR 0.95, D-Dimer 0.62 H, Sodium 139, Potassium 4.0, Chloride 96 L, Carbon Dioxide 29, Anion Gap 18.0 H, BUN 14, Creatinine 0.80, Estimated Creat Clear 125, Estimated GFR 100, Est GFR ( Amer) 121, Glucose 163 H, Calcium 9.8, Magnesium 2.0, Total Bilirubin 1.1, AST 31, ALT 36, Alkaline Phosphatase 95, Troponin I < 0.01, NT-Pro-B Natriuret Pep < 20.0, Total Protein 8.4 H, Albumin 4.9, Globulin 3.5 H, Albumin/Globulin Ratio 1.4, Lipase 83, Procalcitonin 0.057, TSH 2.09, Free T4 Index 2.3 L, Thyroxine (T4) 7.1, T3 Uptake 33 10/15/24 18:50: Urine Color Yellow, Urine Appearance Slightly cloudy, Urine pH 7.0, Ur Specific [place] 1.015, Urine Protein Negative, Urine Glucose (UA) 3+, Urine Ketones 1+, Urine Blood Negative, Urine Nitrate Negative, Urine Bilirubin Negative, Urine Urobilinogen 0.2, Ur Leukocyte Esterase Negative, Urine RBC None, Urine WBC None, Ur Squamous Epith Cells None, Urine Bacteria Trace 10/15/24 20:53: Troponin I < 0.01 I & O for Last 24 hours: Intake & Output 10/12/24 10/13/24 10/14/24 10/15/24 23:59 23:59 23:59 23:59 Weight 87.09 kg Constitutional Constitutional: no acute distress *Routine HEENT Exam Head: Present normocephalic Eye: Present EOMI and PERRL ENT: Present mucous membranes moist *Routine Neck Exam Neck: Present supple; Absent lymphadenopathy *Routine Respiratory Exam Respiratory: Present CTA bilaterally *Routine Cardiovascular Exam Cardiovascular: Present RRR *Routine Abdominal Exam Abdominal: Present soft and normoactive bowel sounds; Absent tenderness *Routine Rectal Exam Rectal:: deferred *Routine Genitalia Exam Genitalia:: deferred *Routine Extremities Exam Extremities: Absent cyanosis, clubbing or edema *Routine Skin Exam Skin: Present warm; Absent rash *Routine Neurological Exam Neurological: Present alert and oriented X3 Assessment and Plan *Assessment and plan (1) Unstable angina: Status: Acute Category: Medical Code(s): I20.0 - Unstable angina Plan * Unstable Angina: Intermittent chest pain (hourly, 5-minute episodes of pressure, left to right) since October 10, 2024, no reproducible pain on exam, troponin <0.01 x2, new right bundle branch block on EKG, in a patient with presumed coronary artery disease (on aspirin, statin). * Continue aspirin 81 mg daily and statin for cardiovascular protection. * Administer nitroglycerin 0.4 mg sublingual every 5 minutes as needed for chest pain, up to three doses; monitor blood pressure every 15 minutes during episodes. * Consult cardiology for inpatient evaluation, including possible heart catheterization to assess coronary artery disease. * Monitor for chest pain, ischemic symptoms, or hemodynamic instability every 4 hours; repeat EKG if pain recurs or worsens. * Recheck troponin in 8 hours to confirm stability (<0.01 x2); escalate to ICU if troponin rises or ST changes appear. * Admit to medical-surgical floor with telemetry for cardiac monitoring. * Right Bundle Branch Block (New): New right bundle branch block on EKG, heart rate 93, no STEMI, in a patient with chest pain and hypertension. * Continue telemetry monitoring; repeat EKG in 24 hours or if chest pain worsens to assess for progression. * Consult cardiology to evaluate conduction abnormality in context of chest pain and possible coronary artery disease. * Monitor for syncope, palpitations, or bradycardia every 4 hours; prepare for temporary pacing if symptomatic conduction issues arise. * Hypertension: Blood pressure 152/103 on arrival, no end-organ damage (troponin <0.01, normal EKG intervals), in a patient with chest pain. * Monitor blood pressure every 2 hours, targeting systolic below 140; initiate lisinopril 10 mg oral daily if blood pressure remains above 140/90 after chest pain evaluation. * Verify home antihypertensive medications; continue unless hypotension develops. * Recheck electrolytes in 24 hours (sodium 139, potassium 4.0) to monitor for medication effects. * Prediabetes with Hyperglycemia: Glucose 163, urinalysis with 3+ glucose, likely exacerbated by stress or prediabetes progression, no prior diabetes treatment noted. * Administer insulin aspart 4 units subcutaneous for glucose above 180; consider insulin glargine 10 units subcutaneous nightly if glucose exceeds 200 persistently. * Order hemoglobin A1c to assess chronic control; monitor closely if A1c exceeds 7% or glucose exceeds 250. * Monitor glucose every 4 hours; recheck with morning labs. * Educate patient on prediabetes management and dietary control post- discharge. * Mildly Elevated D-Dimer: D-dimer 0.62, negative YEARS criteria and CTA not required, excluding pulmonary embolism, in a patient with chest pain. * Monitor for new shortness of breath, hypoxia, or tachycardia every 4 hours; order CTA chest if symptoms suggestive of pulmonary embolism develop. * No further workup for pulmonary embolism unless clinical suspicion increases. * Normal Laboratory Findings: WBC 9.4, hemoglobin 17.1, no neutrophilic shift, normal renal function (creatinine 0.80, GFR 100), no infectious or metabolic derangements, in a patient with chest pain. * Recheck CBC in 24 hours to monitor for new abnormalities; no further infectious workup unless fever or symptoms arise. * Monitor for signs of infection or metabolic changes every 8 hours. Additional Orders: * Admit to medical-surgical floor for cardiac workup and monitoring. * Maintain continuous telemetry; check vitals every 2 hours, including glucose every 4 hours. * Administer acetaminophen 650 mg oral every 6 hours as needed for discomfort; avoid nonsteroidal anti-inflammatory drugs due to cardiovascular risk. * Educate patient on chest pain management, medication adherence, and follow-up importance. * Arrange outpatient follow-up with cardiology, primary care. * Expedite troponin trend, EKG if symptomatic, and cardiology consul
--- NOTE | 2024-10-15 22:26 | PC.NURSE ---
Report called to Celeste MOHAN Pt transported to room via wheelchair by MARKETING INTELLIGENCE ANALYST
--- NOTE | 2024-10-15 22:41 | PC.NURSE ---
Patient arrived to floor via wheelchair from ED at 22:40.
--- NOTE | 2024-10-15 23:35 | PC.NURSE ---
Patient requested to have some of his home medications (pregabalin, cetirizine, and ropinirole) restarted to take for bedtime. Isabel BALLARD was paged at this time concerning the patient's request. Pending any new orders.
[2024-10-15 23:59] LABS: Troponin I < 0.01 ng/ml (0.00-0.034)
[2024-10-16 04:00] VITALS: BP 125/75; PULSE 77; RESP 14; TEMP 36.8; O2SAT 95; BMI 26.8
[2024-10-16 06:41] LABS: POC Glucose,Bedside 169 (70-110)
[2024-10-16 06:42] LABS: Basophils % 0.5 % (0.1-2.0); Eosinophils # 0.2 K/mm3 (0.0-0.4); Eosinophils % 2.1 % (0.1-12.0); Hematocrit 46.5 % (42.0-52.0); Hemoglobin 16.1 g/dL (14.1-18.0); Lymphocytes # 3.2 K/mm3 (0.7-4.5); Lymphocytes % 40.9 % (10-50); Mean Corpuscular HGB Conc 34.6 g/dL (31.8-35.4); Mean Corpuscular Hemoglobin 30.3 pg (27.0-31.2); Mean Corpuscular Volume 87.4 fl (80-94); Mean Platelet Volume 10.4 fl (7.4-10.4); Monocytes # 0.6 K/mm3 (0.1-1.0); Monocytes % 8.2 % (1.7-9.3); Neutrophils # 3.7 K/mm3 (1.8-7.8); Nucleated Red Blood Cells # 0 10^3/uL; Nucleated Red Blood Cells % 0 %; Platelet Count 277 K/mm3 (142-424); Red Blood Count 5.32 M/mm3 (4.60-6.20); Red Cell Distribution Width 12.4 % (11.5-17.5); Red Cell Distribution Width-SD 39.1 fL; White Blood Count 7.7 K/mm3 (4.8-10.8)
--- NOTE | 2024-10-16 06:49 | PC.NURSE ---
I checked the patient's glucose level this morning (at 06:32) via fingerstick. The patient has a history of diabetes type II and usually utilizes a Dexcom. His Dexcom is not in place at this time. Glucose reading was 169. The patient stated that he is currently not interested in receiving insulin coverage for this reading.
[2024-10-16 06:52] LABS: Chloride 103 mmol/L (98-107); Potassium 4.2 mmoL/L (3.5-5.1); Sodium 138 mmol/L (136-145)
[2024-10-16 06:55] LABS: Anion Gap 14.2 mEq/L (5-15); Blood Urea Nitrogen 15 mg/dl (9-20); Carbon Dioxide 25 mmol/L (22.0-30.0); Creatinine Clearance Estimated 118 mL/min (50-200); Estimated Glomerular Filt Rate 100 ml/min (>60); GFR (African American) 121 ML/MIN (>60); Phosphorous 3.3 mg/dl (2.5-4.5)
[2024-10-16 06:56] LABS: Calcium 9.2 mg/dl (8.4-10.2); Glucose 177 mg/dl (74-100); Magnesium 1.9 mg/dl (1.6-2.3)
[2024-10-16 07:40] LABS: Hemoglobin A1C 7.8 % (4.0-6.0)
--- NOTE | 2024-10-16 07:50 | HMH.PHAINT1 ---
Pharmacy Intervention Comments: HOME MEDICATION LIST VERIFIED USING LIST FROM OUTPATIENT PHARMACY AND PT INTERVIEW
[2024-10-16 08:00] VITALS: BP 124/73; PULSE 73; RESP 18; TEMP 36.6; O2SAT 96
--- NOTE | 2024-10-16 08:45 | CA_ITS ---
APPROVED REPORT EXAM: Comprehensive 2D, Doppler, and color-flow Echocardiogram Utilization Specialist: Alexa Bansal CRT Ht: 5 ft 8 in Wt: 181lbs BSA: 1.96 BP: 140/90 mmHg Indications: Chest Pain, Shortness of Breath, Fatigue, Hyperlipidemia, Hypertension/HDD, son has BAV M-Mode Dimensions RVDd 2.71 cm (0.9-2.6) LA Diam 3.77 cm (1.9-4.0) LVDd 4.24 cm (3.5-5.7) LVDs 2.24 cm (3.5-5.7) IVSd 0.87 cm (0.6-1.1) PWd 0.78 cm (0.6-1.1) EF (Teich) 78.90% FS 47.20% EDV (Teich) 80.40 mL TAPSE 2.18 (<1.7) ESV (Teich) 17.00 mL LV Diastology E Decel Time 123 (160-240 msec) E/A Ratio 0.86 MED A' 12.40 cm/s LAT A' 13.00 cm/s Aortic Valve AO Peak GR. 5.20 mmHg Mitral Valve MV A Velocity 64.0 (40-130 cm/s) E/A Ratio 0.86 Pulmonary Valve PV Peak Velocity 76.0 (50-150 cm/s) Tricuspid Valve TR P. Velocity 174.00 cm/s RAP Estimate 10.00 mmHg RVSP 22.20 mmHg Left Ventricle The left ventricle is normal size. The left ventricular systolic function is normal. The left ventricular ejection fraction is within the normal range. There is increased overall thickness. There is normal LV segmental wall motion. The left ventricular diastolic function is normal. LVEF is 55%. Right Ventricle The right ventricle is normal size. The right ventricular systolic function is normal. Atria The left atrium size is normal. The right atrium size is normal. There is no Doppler evidence of interatrial shunt. Aortic Valve The aortic valve is mildly thickened, cannot rule out bicuspid aortic valve. There is no aortic valvular stenosis. Trace aortic regurgitation. Mitral Valve The mitral valve is normal in structure. No evidence of mitral valve stenosis. Trace mitral regurgitation. Tricuspid Valve Tricuspid valve is grossly normal in structure and function. Trace tricuspid regurgitation. There is insufficient TR jet to estimate RVSP. Pulmonic Valve The pulmonary valve is normal in structure. Trace pulmonic regurgitation. Great Vessels The aortic root is normal in size. IVC is normal in size and collapses >50% with inspiration. Pericardium There is no pericardial effusion. Other Information Study Quality: Fair Conclusion Normal biventricular systolic function. The aortic valve is mildly thickened, cannot rule out bicuspid aortic valve. No significant valvular stenosis or regurgitation. Electronically signed by : Apple Rizvi MD 10/16/2024 21:02:51
[2024-10-16] MEDS: PREGABALIN 100MG CAPSULE 200 MG PO (09:56)
[2024-10-16] MEDS: ESCITALOPRAM 20MG TABLET 20 MG PO (09:56)
[2024-10-16] MEDS: ROPINIROLE HCL 0.25 MG TABLET 0.5 MG PO (09:57)
--- NOTE | 2024-10-16 12:10 | EXP.CARD.CON ---
History of Present Illness History of Present Illness Consult date: 10/16/24 Requesting physician: Bladimir Trivedi Chief complaint: chest pain History of present illness: 59-year-old white male without known cardiovascular disease but history of diabetes, hypercholesterolemia, hypertension. Patient presented to the emergency room yesterday with complaints of episodic chest pain over the past week. He describes episodes of discomfort which began after he exerts himself heavily but not during exertion. Symptoms resolve at rest. He does admit that he is very stressed running 3 different businesses. He has sleep apnea but does not use his CPAP and states he only sleeps for about 3 hours per night and is constantly fatigued. He presented to the emergency room for evaluation and was found to have normal serial troponins, EKG shows sinus rhythm with right bundle branch block but no prior for comparison. Chest x-ray is normal, blood pressure 152 systolic. Due to his CV risk factors he was admitted overnight for observation. This morning he reports he is asymptomatic at rest. He has history of anaphylactic shock with prior contrast use and is not interested in CTA or left heart cath. [facility] Disclaimer: The information contained in this section may have been updated after the patient was seen, as this information can be updated by other users. Medical History Sleep apnea Kidney stone Diabetes type 2 History of nephrolithotomy with removal of calculi Dehydration Bowel perforation Sepsis Chest pain Neuropathy Restless leg syndrome Surgical History H/O inguinal hernia repair Family History Mother Heart disease Social History Smoking Status: Never smoker alcohol intake: never current occupational status: employed Travel in the last 8 weeks: None Have you lived/traveled outside [place] in past 30 days?: No Contact w/someone who lives/traveled outside US past 30 days?: No Exposure to someone with infectious disease in past 14 days?: No Do you have a fever (greater than 100.4 F or 38 C)?: No Have you tested positive for COVID-19: No Exposed to someone with COVID-19 in past 14 days?: No Do you have a sore throat?: No Do you have a cough?: No Do you have any weakness?: No Are you experiencing any nausea/vomitting?: No Do you have any diarrhea?: No Are you experiencing any unusual bleeding?: No Do you have any muscle aches/pain?: No Do you have any abdominal pain?: No Are you experiencing loss of taste or smell?: No Review of Systems Constitutional Constitutional: Denies fatigue and Denies weakness Eyes Eyes: Denies loss of vision ENT Ears, Nose, Mouth, and Throat: Denies hearing loss and Denies vertigo *Cardiovascular Cardiovascular: Reports chest pain, Reports dyspnea and Denies syncope *Respiratory Respiratory: Denies cough and Reports dyspnea *Gastrointestinal Gastrointestinal: Denies change in stool character, Denies nausea and Denies vomiting *Genitourinary Genitourinary: Denies difficulty urinating *Musculoskeletal Musculoskeletal: Denies muscle weakness Integumentary/Breasts Skin/Breast: Denies changing lesions *Neurologic Neurologic: Denies loss of vision, Denies syncope, Denies vertigo and Denies weakness Endocrine Endocrine: Denies fatigue Exam Data for Last 24 hours Vital signs and Labs for Last 24 Hours: Temp Pulse Resp BP Pulse Ox O2 Del Method 97.9 F 73 18 124/73 96 Room Air 10/16/24 08:00 10/16/24 08:00 10/16/24 08:00 10/16/24 08:00 10/16/24 08:00 10/16/24 11:00 Laboratory Results - last 24 hr 10/15/24 18:05: WBC 9.4, RBC 5.59, Hgb 17.1, Hct 48.6, MCV 86.9, MCH 30.6, MCHC 35.2, RDW 12.5, Plt Count 317, MPV 10.4, Neut % (Auto) 57.4, Lymph % (Auto) 34.9, [place] % (Auto) 6.1, Eos % (Auto) 0.9, Baso % (Auto) 0.4, Neut # (Auto) 5.4, Lymph # (Auto) 3.3, [place] # (Auto) 0.6, Eos # (Auto) 0.1, Baso # (Auto) 0.0, PT 10.7, INR 0.95, D-Dimer 0.62 H, Sodium 139, Potassium 4.0, Chloride 96 L, Carbon Dioxide 29, Anion Gap 18.0 H, BUN 14, Creatinine 0.80, Estimated Creat Clear 125, Estimated GFR 100, Est GFR ( Amer) 121, Glucose 163 H, Calcium 9.8, Magnesium 2.0, Total Bilirubin 1.1, AST 31, ALT 36, Alkaline Phosphatase 95, Troponin I < 0.01, NT-Pro-B Natriuret Pep < 20.0, Total Protein 8.4 H, Albumin 4.9, Globulin 3.5 H, Albumin/Globulin Ratio 1.4, Lipase 83, Procalcitonin 0.057, TSH 2.09, Free T4 Index 2.3 L, Thyroxine (T4) 7.1, T3 Uptake 33 10/15/24 18:50: Urine Color Yellow, Urine Appearance Slightly cloudy, Urine pH 7.0, Ur Specific [place] 1.015, Urine Protein Negative, Urine Glucose (UA) 3+, Urine Ketones 1+, Urine Blood Negative, Urine Nitrate Negative, Urine Bilirubin Negative, Urine Urobilinogen 0.2, Ur Leukocyte Esterase Negative, Urine RBC None, Urine WBC None, Ur Squamous Epith Cells None, Urine Bacteria Trace 10/15/24 20:53: Troponin I < 0.01 10/15/24 23:10: Troponin I < 0.01 10/16/24 05:58: WBC 7.7, RBC 5.32, Hgb 16.1, Hct 46.5, MCV 87.4, MCH 30.3, MCHC 34.6, RDW 12.4, Plt Count 277, MPV 10.4, Neut % (Auto) 48.0, Lymph % (Auto) 40.9, [place] % (Auto) 8.2, Eos % (Auto) 2.1, Baso % (Auto) 0.5, Neut # (Auto) 3.7, Lymph # (Auto) 3.2, [place] # (Auto) 0.6, Eos # (Auto) 0.2, Baso # (Auto) 0.0, Sodium 138, Potassium 4.2, Chloride 103, Carbon Dioxide 25, Anion Gap 14.2, BUN 15, Creatinine 0.80, Estimated Creat Clear 118, Estimated GFR 100, Est GFR ( Amer) 121, Glucose 177 H, Hemoglobin A1c 7.8 H, Calcium 9.2, Phosphorus 3.3, Magnesium 1.9 10/16/24 06:32: POC Glucose 169 H I & O for Last 24 hours: Intake & Output 10/13/24 10/14/24 10/15/24 10/16/24 23:59 23:59 23:59 23:59 Intake Total 1295 / 1295 Output Total 0 / 0 Balance 1295 / 1295 Weight 181 lb 3 oz 181 lb 2.99 oz Constitutional Constitutional: no acute distress and cooperative *Routine HEENT Exam Eye: Present PERRL *Routine Respiratory Exam Respiratory: Present CTA bilaterally; Absent accessory muscle use, wheezes or crackles *Routine Cardiovascular Exam Cardiovascular: Present RRR, Normal S1 and Normal S2; Absent murmur, gallop or rubs *Routine Abdominal Exam Abdominal: Present soft; Absent tenderness *Routine Extremities Exam Extremities: Present pulses intact; Absent cyanosis or edema *Routine Skin Exam Skin: Present intact; Absent erythema or wounds *Routine Neurological Exam Neurological: Present alert and oriented X3 Routine Psychiatric Exam Psychiatric: Present cooperative Meds Home Medications and Allergies Home Medications ?Medication ?Instructions ?Recorded ?Confirmed ?Type cetirizine 10 mg tablet 10 mg PO HS 10/15/24 10/15/24 History cholecalciferol (vitamin D3) 25 25 mcg PO DAILY 10/15/24 10/15/24 History mcg (1,000 unit) tablet (Vitamin D3) dapagliflozin propanediol 10 mg 10 mg PO DAILY 10/15/24 10/15/24 History tablet (Farxiga) escitalopram oxalate 20 mg tablet 20 mg PO DAILY 10/15/24 10/15/24 History (Lexapro) esomeprazole magnesium 40 mg 40 mg PO DAILY 10/15/24 10/15/24 History capsule,delayed release (Nexium) evolocumab 140 mg/mL subcutaneous 140 mg SQ DIRECTED 10/15/24 10/15/24 History pen injector (José Armentaick) lisinopril 10 mg tablet 10 mg PO DAILY 10/15/24 10/15/24 History pregabalin 200 mg capsule 200 mg PO BID 10/15/24 10/15/24 History ropinirole 0.5 mg tablet 0.5 mg PO BID 10/15/24 10/15/24 History tirzepatide 10 mg/0.5 mL 10 mg SQ WEEKLY 10/15/24 10/15/24 History subcutaneous pen injector (Yamel) aspirin 81 mg tablet,delayed 81 mg PO DAILY #30 tabs 10/16/24 Rx release isosorbide mononitrate 30 mg 30 mg PO DAILY 30 days #30 tabs 10/16/24 Rx tablet,extended release 24 hr metoprolol succinate 25 mg 25 mg PO DAILY 30 days #30 tabs 10/16/24 Rx tablet,extended release 24 hr New Prescriptions to Start Prescriptions: Bladimir Garcia isosorbide mononitrate Shikha,Bladimir metoprolol succinate Bladimir Trivedi Allergies Allergy/AdvReac Type Severity Reaction Status Date / Time Iodinated Contrast Media Allergy Anaphylaxis Verified 10/15/24 18:02 [id number] Reductase Allergy Muscle Pain Verified 10/16/24 12:14 Inhibitor Assessment and Plan *Assessment and plan (1) Angina pectoris: Status: Acute Category: Medical Code(s): I20.9 - Angina pectoris, unspecified (2) Hypertension: Status: Acute Category: Medical Code(s): I10 - Essential (primary) hypertension (3) Diabetes mellitus: Status: Acute Category: Medical Code(s): E11.9 - Type 2 diabetes mellitus without complications (4) Hyperlipidemia: Status: Acute Category: Medical Code(s): E78.5 - Hyperlipidemia, unspecified Plan Angina Pectoris - CCS = 3, normal serial trop, EKG shows no ischemia, ECHO shows nml EF and no wall motion abnormalities - Discussed with patient and his in detail that he is high CV risk and his symptoms may well represent coronary artery disease. I advised that even with anaphylaxis to contrast we can administer steroids and antihistamines and he could undergo left heart cath with evaluation of his coronaries this admission. They advised with normal troponin and 2D echo they would feel more comfortable with medication management and outpatient stress testing. I advised addition of aspirin, beta-taylor, nitrates. No heavy exertion, twice daily blood pressure log, live 2-week heart monitor, stress test early next week. If he has any changes in his symptoms between now and then he should call 911 or return emergently to the emergency department. Hypertension - Continue home dose lisinopril - Add Toprol XL 25 - Keep twice daily blood pressure low Obstructive sleep apnea - Patient declines wearing CPAP and only sleeps 3 hours per night - I advised chronic sleep deprivation with severe stress daily is very hard on him long-term and may well be the source of his symptoms. I strongly encouraged he get more rest and reconsider treatment of GAGE. Hyperlipidemia - Patient reports severe statin intolerance, currently on Repatha Diabetes mellitus, A1c 7.8 - Patient on Mounjaro and Farxiga - Consider GLP-1 as source of chest discomfort but states he has been on this for over 1 year without incident CV stable for discharge home with plans as outlined above CV DC medications: - Cont home meds - Add aspirin 81 mg 1 p.o. daily - Add Toprol XL 25 mg p.o. daily - Add Imdur 30 mg p.o. daily - Add PRN Ntg SL CV follow-up: - 2-week heart monitor to be placed prior to discharge - GXT Myoview stress test here early next week-order placed as STAT - Office follow-up with us next week
--- NOTE | 2024-10-16 12:11 | EXP.DC.SUM ---
General Admission date:: 10/15/24 Discharge date: 10/16/24 HPI HPI HPI: A 59-year-old male presents to the emergency department for evaluation of intermittent chest pain since Thursday, October 10, 2024. He describes the pain as pressure starting in the left chest, localizing, then radiating to the right, occurring hourly while awake and lasting approximately 5 minutes. He denies shortness of breath, fever, chills, hemoptysis, hematochezia, melena, nausea, vomiting, or diarrhea. He takes aspirin and a statin (specifics not provided). The history was obtained through interactive discussion with the patient, who is deemed reliable, with no prior records available. On examination, the patient is hypertensive (blood pressure 152/103), with a heart rate of 93, respiratory rate of 18, oxygen saturation 95% on room air, afebrile (temperature 98), and in normal sinus rhythm on bedside monitor. Physical exam reveals clear breath sounds, no increased work of breathing, no adventitious sounds, no reproducible chest pain on palpation, soft nontender abdomen without epigastric pain, rebound, guarding, or rigidity, normal active bowel sounds, and no dependent edema. Diagnostic workup includes labs, urinalysis, and twelve-lead EKG. Labs show WBC 9.4, hemoglobin 17.1, hematocrit 48.6, platelets 317, sodium 139, potassium 4.0, creatinine 0.80, GFR 100, glucose 163, troponin <0.01 (two measurements), NT-proBNP <20.0, D-dimer 0.62, anion gap 18.0, total protein 8.4, globulin 3.5, AST 31, ALT 36, alkaline phosphatase 95, lipase 83, procalcitonin 0.057, TSH 2.09, free T4 index 2.3, and T4 7.1. Urinalysis shows 3+ glucose, 1+ ketones, trace bacteria, and no WBCs or RBCs. EKG shows a new right bundle branch block, no ST elevation. Chest X-ray was not ordered, as PE was excluded by negative D-dimer and YEARS criteria. No initial interventions were administered, as the patient is chest pain-free, and aspirin/statin were deferred (already taken). Indirect discussion with lab technician Dr. Pascal recommended admission for further evaluation, potentially including heart catheterization. Hospital medicine has admitted the patient in stable condition for cardiac workup. Hospital Course Hospital Course Hospital Course: 59-year-old male who presented with intermittent chest pain to the ER. Pain been going on since Saturday. Pain is pressure-like starting in the left chest. Radiated to the right. Happening hourly while awake and lasting approximately 5 minutes. Denies diaphoresis, fever, nausea or vomiting. Cardiology consulted. Monitored overnight. Serial cardiac enzymes negative. Chest pain resolved. Stable discharge home with close follow-up as an outpatient and further ischemic eval in the clinic setting. Problems addressed as follows: Angina Pectoris Hypertension - Presented with intermittent chest pain. Pain resolved by morning. CCS score of 3. Serial troponins nondetectable. EKG with no ischemic changes. Echo was obtained with a normal EF and no wall motion abnormalities. Cardiology was consulted, patient found to have allergy to contrast (anaphylaxis). Hesitant to undergo heart cath. After much discussion, plan to follow-up as an outpatient with 2-week heart monitor, consider GXT Myoview stress test next week. Office follow-up pending stress test for further management and discussion of further outpatient ischemic eval. Hemodynamically stable at discharge. Initiated on aspirin 81 mg daily, Toprol-XL 25 mg daily, Imdur 30 mg daily and as needed nitro. Obstructive sleep apnea: Patient declines wearing CPAP and only sleeps 3 hours per night. Strongly recommend reevaluation of sleep apnea and initiation of treatment depending on severity. Hyperlipidemia: Patient reports severe statin intolerance, currently on Repatha Diabetes mellitus, A1c 7.8: Patient on Mounjaro and Farxiga. Consider alternate etiology of chest pain. Could be related to medication side effect. Continue current diabetes regimen. Recommend further management as an outpatient. Exam Data for Last 24 hours Vital signs and Labs for Last 24 Hours: Temp Pulse Resp BP Pulse Ox O2 Del Method 97.9 F 73 18 124/73 96 Room Air 10/16/24 08:00 10/16/24 08:00 10/16/24 08:00 10/16/24 08:00 10/16/24 08:00 10/16/24 11:00 Laboratory Results - last 24 hr 10/15/24 18:05: WBC 9.4, RBC 5.59, Hgb 17.1, Hct 48.6, MCV 86.9, MCH 30.6, MCHC 35.2, RDW 12.5, Plt Count 317, MPV 10.4, Neut % (Auto) 57.4, Lymph % (Auto) 34.9, [place] % (Auto) 6.1, Eos % (Auto) 0.9, Baso % (Auto) 0.4, Neut # (Auto) 5.4, Lymph # (Auto) 3.3, [place] # (Auto) 0.6, Eos # (Auto) 0.1, Baso # (Auto) 0.0, PT 10.7, INR 0.95, D-Dimer 0.62 H, Sodium 139, Potassium 4.0, Chloride 96 L, Carbon Dioxide 29, Anion Gap 18.0 H, BUN 14, Creatinine 0.80, Estimated Creat Clear 125, Estimated GFR 100, Est GFR ( Amer) 121, Glucose 163 H, Calcium 9.8, Magnesium 2.0, Total Bilirubin 1.1, AST 31, ALT 36, Alkaline Phosphatase 95, Troponin I < 0.01, NT-Pro-B Natriuret Pep < 20.0, Total Protein 8.4 H, Albumin 4.9, Globulin 3.5 H, Albumin/Globulin Ratio 1.4, Lipase 83, Procalcitonin 0.057, TSH 2.09, Free T4 Index 2.3 L, Thyroxine (T4) 7.1, T3 Uptake 33 10/15/24 18:50: Urine Color Yellow, Urine Appearance Slightly cloudy, Urine pH 7.0, Ur Specific [place] 1.015, Urine Protein Negative, Urine Glucose (UA) 3+, Urine Ketones 1+, Urine Blood Negative, Urine Nitrate Negative, Urine Bilirubin Negative, Urine Urobilinogen 0.2, Ur Leukocyte Esterase Negative, Urine RBC None, Urine WBC None, Ur Squamous Epith Cells None, Urine Bacteria Trace 10/15/24 20:53: Troponin I < 0.01 10/15/24 23:10: Troponin I < 0.01 10/16/24 05:58: WBC 7.7, RBC 5.32, Hgb 16.1, Hct 46.5, MCV 87.4, MCH 30.3, MCHC 34.6, RDW 12.4, Plt Count 277, MPV 10.4, Neut % (Auto) 48.0, Lymph % (Auto) 40.9, [place] % (Auto) 8.2, Eos % (Auto) 2.1, Baso % (Auto) 0.5, Neut # (Auto) 3.7, Lymph # (Auto) 3.2, [place] # (Auto) 0.6, Eos # (Auto) 0.2, Baso # (Auto) 0.0, Sodium 138, Potassium 4.2, Chloride 103, Carbon Dioxide 25, Anion Gap 14.2, BUN 15, Creatinine 0.80, Estimated Creat Clear 118, Estimated GFR 100, Est GFR ( Amer) 121, Glucose 177 H, Hemoglobin A1c 7.8 H, Calcium 9.2, Phosphorus 3.3, Magnesium 1.9 10/16/24 06:32: POC Glucose 169 H I & O for Last 24 hours: Intake & Output 10/13/24 10/14/24 10/15/24 10/16/24 23:59 23:59 23:59 23:59 Intake Total 1295 / 1295 Output Total 0 / 0 Balance 1295 / 1295 Weight 82.185 kg 82.185 kg Constitutional Constitutional: no acute distress, average body habitus and cooperative *Routine HEENT Exam Head: Present normocephalic Eye: Present EOMI and PERRL ENT: Present mucous membranes moist *Routine Neck Exam Neck: Present supple; Absent lymphadenopathy Routine Chest/Breast/Axilla Exam Chest wall: Absent tenderness *Routine Respiratory Exam Respiratory: Present CTA bilaterally; Absent rhonchi, wheezes or crackles *Routine Cardiovascular Exam Cardiovascular: Present RRR *Routine Abdominal Exam Abdominal: Present soft and normoactive bowel sounds; Absent tenderness *Routine Rectal Exam Patient deferred: visual exam *Routine Exam Patient deferred: penile exam *Routine Extremities Exam Extremities: Absent cyanosis, clubbing or edema *Routine Skin Exam Skin: Present warm; Absent rash *Routine Neurological Exam Neurological: Present alert, oriented X3 and moving all extremities; Absent altered mental status Results Data Completed and Pending Labs on day of discharge: Labs from last 24 hours 10/16/24 10/16/24 10/15/24 06:32 05:58 23:10 WBC 7.7 RBC 5.32 Hgb 16.1 Hct 46.5 MCV 87.4 MCH 30.3 MCHC 34.6 RDW 12.4 Plt Count 277 MPV 10.4 Neut % (Auto) 48.0 Lymph % (Auto) 40.9 [place] % (Auto) 8.2 Eos % (Auto) 2.1 Baso % (Auto) 0.5 Neut # (Auto) 3.7 Lymph # (Auto) 3.2 [place] # (Auto) 0.6 Eos # (Auto) 0.2 Baso # (Auto) 0.0 PT INR D-Dimer Sodium 138 Potassium 4.2 Chloride 103 Carbon Dioxide 25 Anion Gap 14.2 BUN 15 Creatinine 0.80 Estimated Creat Clear 118 Estimated GFR 100 Est GFR ( Amer) 121 Glucose 177 H POC Glucose 169 H Hemoglobin A1c 7.8 H Calcium 9.2 Phosphorus 3.3 Magnesium 1.9 Total Bilirubin AST ALT Alkaline Phosphatase Troponin I < 0.01 NT-Pro-B Natriuret Pep Total Protein Albumin Globulin Albumin/Globulin Ratio Lipase Procalcitonin TSH Free T4 Index Thyroxine (T4) T3 Uptake Urine Color Urine Appearance Urine pH Ur Specific [place] Urine Protein Urine Glucose (UA) Urine Ketones Urine Blood Urine Nitrate Urine Bilirubin Urine Urobilinogen Ur Leukocyte Esterase Urine RBC Urine WBC Ur Squamous Epith Cells Urine Bacteria 10/15/24 10/15/24 10/15/24 20:53 18:50 18:05 WBC 9.4 RBC 5.59 Hgb 17.1 Hct 48.6 MCV 86.9 MCH 30.6 MCHC 35.2 RDW 12.5 Plt Count 317 MPV 10.4 Neut % (Auto) 57.4 Lymph % (Auto) 34.9 [place] % (Auto) 6.1 Eos % (Auto) 0.9 Baso % (Auto) 0.4 Neut # (Auto) 5.4 Lymph # (Auto) 3.3 [place] # (Auto) 0.6 Eos # (Auto) 0.1 Baso # (Auto) 0.0 PT 10.7 INR 0.95 D-Dimer 0.62 H Sodium 139 Potassium 4.0 Chloride 96 L Carbon Dioxide 29 Anion Gap 18.0 H BUN 14 Creatinine 0.80 Estimated Creat Clear 125 Estimated GFR 100 Est GFR ( Amer) 121 Glucose 163 H POC Glucose Hemoglobin A1c Calcium 9.8 Phosphorus Magnesium 2.0 Total Bilirubin 1.1 AST 31 ALT 36 Alkaline Phosphatase 95 Troponin I < 0.01 < 0.01 NT-Pro-B Natriuret Pep < 20.0 Total Protein 8.4 H Albumin 4.9 Globulin 3.5 H Albumin/Globulin Ratio 1.4 Lipase 83 Procalcitonin 0.057 TSH 2.09 Free T4 Index 2.3 L Thyroxine (T4) 7.1 T3 Uptake 33 Urine Color Yellow Urine Appearance Slightly cloudy Urine pH 7.0 Ur Specific [place] 1.015 Urine Protein Negative Urine Glucose (UA) 3+ Urine Ketones 1+ Urine Blood Negative Urine Nitrate Negative Urine Bilirubin Negative Urine Urobilinogen 0.2 Ur Leukocyte Esterase Negative Urine RBC None Urine WBC None Ur Squamous Epith Cells None Urine Bacteria Trace DS: Diagnosis Discharge Diagnosis (1) Unstable angina: Status: Acute Code(s): I20.0 - Unstable angina (2) Hyperlipidemia: Status: Acute Code(s): E78.5 - Hyperlipidemia, unspecified (3) Diabetes mellitus: Status: Acute Code(s): E11.9 - Type 2 diabetes mellitus without complications (4) Hypertension: Status: Acute Code(s): I10 - Essential (primary) hypertension (5) Angina pectoris: Status: Acute Code(s): I20.9 - Angina pectoris, unspecified Meds Home Medications and Allergies Home Medications ?Medication ?Instructions ?Recorded ?Confirmed ?Type cetirizine 10 mg tablet 10 mg PO HS 10/15/24 10/15/24 History cholecalciferol (vitamin D3) 25 25 mcg PO DAILY 10/15/24 10/15/24 History mcg (1,000 unit) tablet (Vitamin D3) dapagliflozin propanediol 10 mg 10 mg PO DAILY 10/15/24 10/15/24 History tablet (Farxiga) escitalopram oxalate 20 mg tablet 20 mg PO DAILY 10/15/24 10/15/24 History (Lexapro) esomeprazole magnesium 40 mg 40 mg PO DAILY 10/15/24 10/15/24 History capsule,delayed release (Nexium) evolocumab 140 mg/mL subcutaneous 140 mg SQ DIRECTED 10/15/24 10/15/24 History pen injector (Repatha SureClick) lisinopril 10 mg tablet 10 mg PO DAILY 10/15/24 10/15/24 History pregabalin 200 mg capsule 200 mg PO BID 10/15/24 10/15/24 History ropinirole 0.5 mg tablet 0.5 mg PO BID 10/15/24 10/15/24 History tirzepatide 10 mg/0.5 mL 10 mg SQ WEEKLY 10/15/24 10/15/24 History subcutaneous pen injector (Yamel) aspirin 81 mg tablet,delayed 81 mg PO DAILY #30 tabs 10/16/24 Rx release isosorbide mononitrate 30 mg 30 mg PO DAILY 30 days #30 tabs 10/16/24 Rx tablet,extended release 24 hr metoprolol succinate 25 mg 25 mg PO DAILY 30 days #30 tabs 10/16/24 Rx tablet,extended release 24 hr New Prescriptions to Start Prescriptions: Bladimir Garcia isosorbide mononitrate Bladimir Trivedi metoprolol succinate Bladimir Trivedi Allergies Allergy/AdvReac Type Severity Reaction Status Date / Time Iodinated Contrast Media Allergy Anaphylaxis Verified 10/15/24 18:02 [id number] Reductase Allergy Muscle Pain Verified 10/16/24 12:14 Inhibitor Discharge Plan Disposition Patient Disposition: Home, Self-Care Condition: Good Follow up Plan Follow up with: Patricia Hall APRN [Primary Care Provider] - 10/21/24 11:15 am Kevin Rizvi MD [Staff Physician] - 10/20/24 1:45 am Prescriptions/Medication Reconciliation: New isosorbide mononitrate 30 mg Tablet Extended Release 24 Hr 30 mg PO DAILY 30 Days Qty: 30 0RF metoprolol succinate 25 mg Tablet Extended Release 24 Hr 25 mg PO DAILY 30 Days Qty: 30 0RF aspirin 81 mg Tablet,Delayed Release (Dr/Ec) 81 mg PO DAILY Qty: 30 0RF Continued esomeprazole magnesium [Nexium] 40 mg capsule,delayed release(DR/EC) 40 mg PO DAILY Patient Comments: TAKE 1 CAPSULE BY MOUTH DAILY. ropinirole 0.5 mg tablet 0.5 mg PO BID Patient Comments: TAKE 1 (ONE) TABLET BY MOUTH TWO TIMES DAILY lisinopril 10 mg tablet 10 mg PO DAILY Patient Comments: TAKE 1 TABLET BY MOUTH ONCE DAILY. escitalopram oxalate [Lexapro] 20 mg Tablet 20 mg PO DAILY pregabalin 200 mg capsule 200 mg PO BID Patient Comments: TAKE 1 CAPSULE BY MOUTH TWICE DAILY cholecalciferol (vitamin D3) [Vitamin D3] 25 mcg (1,000 unit) Tablet 25 mcg PO DAILY dapagliflozin propanediol [Farxiga] 10 mg tablet 10 mg PO DAILY Patient Comments: TAKE 1 TABLET BY MOUTH ONCE DAILY. Repatha SureClick 140 mg/mL pen injector 140 mg SQ DIRECTED Patient Comments: INJECT THE CONTENTS OF PEN SUBCUTANEOUSLY EVERY 2 WEEKS Rx Instructions: INJECT THE CONTENTS OF PEN SUBCUTANEOUSLY EVERY 2 WEEKS Mounjaro 10 mg/0.5 mL pen injector 10 mg SQ WEEKLY Patient Comments: INJECT 10 MG ONCE WEEKLY DIRECTED. cetirizine 10 mg Tablet 10 mg PO HS Problem Reconciliation Problems Reviewed?: Yes Patient Discharge Instructions ACTIVITY: Continue current activity DIET: continue same diet Patient Instructions: Angina, DI for Chest Pain Print Language: [place] Providers Primary Care Provider: Patricia Hall Admit Provider: Bladimir Trivedi Attending Provider: Bladimir Trivedi
[2024-10-16] MEDS: ISOSORBIDE MONO 30MG TAB.ER.24H 30 MG PO (13:11)
[2024-10-16] MEDS: METOPROLOL SUCCINATE XL 25MG TABLET 25 MG PO (13:11)
[2024-10-16] MEDS: ASPIRIN EC 81MG TABLET 81 MG PO (13:12)
--- NOTE | 2024-10-19 14:42 | SW/DCPLANNER ---
Spoke with patient on the phone. Patient stated that he is doing good. Patient stated that he was able to get his medicine picked up. Patient stated that he has no concerns or questions at this time. Claudia Garrett
== END 2024-10-16 13:25 | disposition home or self-care (01) ==
LOC: ER 21:59 → 2ND 22:27
PROVIDERS: Nurse Practitioner Family; Physician Assistant; Admitting Provider Internal Medicine Adolescent Medicine; Emergency Provider Emergency Medicine; PCP Nurse Practitioner Family; Visit Provider Internal Medicine Adolescent Medicine
DX: I20.0 Unstable angina (principal); I45.10 Unspecified right bundle-branch block; E78.5 Hyperlipidemia, unspecified; G47.33 Obstructive sleep apnea (adult) (pediatric); I10 Essential (primary) hypertension; E11.65 Type 2 diabetes mellitus with hyperglycemia; Z79.84 Long term (current) use of oral hypoglycemic drugs; Z79.85 Long-term (current) use of injectable non-insulin antidiabetic drugs; Z91.041 Radiographic dye allergy status; Z79.899 Other long term (current) drug therapy; Z82.49 Family history of ischemic heart disease and other diseases of the circulatory system; Z79.82 Long term (current) use of aspirin; Z87.442 Personal history of urinary calculi
CPT/HCPCS: 36415; 71046; 80048; 80053; 81001; 82962; 83036; 83690; 83735; 83880; 84100; 84145; 84436; 84443; 84479; 84484; 85025; 85378; 85610; 93005; 93270; 93306; 99285; G0378; J2405; J7030

== ENCOUNTER 2024-10-21 10:43 | Outpatient (CLI) | payer BC, SELFPAY ==
--- NOTE | 2024-10-21 | CA_ITS ---
APPROVED REPORT Exam: Pharmacologic Technologist: Ruby Sierra Ht: 5 ft 9 in Wt: 198 lbs BSA: 2.06 m2 HR: 78 bpm BP: 104/64 mmHg Rhythm: NSR Stress Test Details Test: Exercise stress testing was performed using a Glenn protocol. HR Resting HR: 78 bpm Max Heart Rate (APMHR): 163 bpm Max HR Achieved: 145 bpm Target HR (85% APMHR): 139 bpm % of APMHR: 89 Recovery HR: 113 bpm HR response to stress: Normal HR response to stress BP Resting BP: 104.0/64.0 mmHg Max BP: 192.0/82.0 mmHg Recovery BP: 152.0/80.0 mmHg BP response to stress: Normal blood pressure response to stress. ECG Resting ECG: Sinus Rhythm, RBBB Stress EC mm horizontal ST depression Clinical Exercise duration: 9:00 min Exercise capacity: 10.3 METs Stress ECG Conclusion 9 Min Max HR: 145 % of PM: 89 Max BP: 192/82 METs: 10.0 Test stopped due to: Leg fatigue. Symptoms: No chest pain. Arrhythmias/Ectopy: Rare PVC. ST-T Changes: Baseline RBBB with STT abnormalities. At peak stress, there is [address] depression Conclusion: Average exercise capacity. Equivocal ECG changes at peak stress in the setting of baseline abnormalities. Myoview images are reported separately. Electronically signed by : Apple Rizvi MD 10/21/2024 22:50:08
--- NOTE | 2024-10-21 11:00 | NM_ITS ---
APPROVED REPORT Exam: Nuclear Stress Test Indication: Chest pain, SOB, Abnormal EKG, HTN, DM, High cholesterol, Family history Patient Location: Outpatient Stress Tech: Ruby Winston [place] Tech:Emily Murray, ARRT, RT (R)(N) Ht: 5 ft 9 in Wt: 195 lbs HR: 78 bpm BP: 104/64 mmHg BSA: 2.04 m2 TID: 1.04 BMI: 28.7 History: Chest pain, SOB, Abnormal EKG, HTN, DM, High cholesterol, Family history Procedure: Patient exercised on Glenn protocol 8:59 minutes and sec, resting heart rate 78 bpm, resting blood pressure 104/64 mmHg, with exercise maximum heart rate achived was 145 bpm which is 88 % of the maximum predicted heart rate and blood pressure was 178/84 mmHg. Test was stopped due to SOB. Patient denied any complaint of chest pain. Patient has Average exercise capacity, achieved 10.3 METs of workload on treadmill, the blood pressure response to exercise was Normal. Cardiac Stress and Resting SPECT Images: Cardiac Stress and Resting SPECT images were obtained using technetium 99m Myoview 31.0 mCi stress and 10.05 mCi at rest. Technically difficult study due to significant soft tissue overlap with the cardiac borders. This may affect diagnostic interpretation of the study findings. Resting and stress imaging in supine and prone positions demonstrate a large sized, moderate, predominantly fixed perfusion defect in the inferior LV wall. There is a small region of reversibility towards the mid to distal inferior LV wall. Gated imaging demonstrates normal global LV systolic function. LVEF is calculated at 58%. Conclusion: Technically difficult study. Large sized, moderate, predominantly fixed perfusion defect in the inferior LV wall. There is a small region of reversibility towards the mid to distal inferior LV wall. Findings are suggestive of partial reversible ischemia. Gated imaging demonstrates normal global LV systolic function. LVEF is calculated at 58%. Electronically signed by : Apple Rizvi MD 10/21/2024 22:42:17
[2024-10-21] MEDS: SODIUM CHLORIDE 0.9% 10ML SYR (RAD ONLY) 10 ML IV ×2 (13:19)
[2024-10-21] MEDS: ISOTOPE MYOVIEW (PER STUDY) 1 DOSE IV (13:19)
== END 2024-10-21 23:59 | disposition home or self-care (01) ==
PROVIDERS: PCP Nurse Practitioner Family; Visit Provider Physician Assistant
DX: I20.0 Unstable angina (principal)
CPT/HCPCS: 78452; 93017; 93018; A9502

== ENCOUNTER 2024-10-25 13:02 | Observation (INO) | payer BC, SELFPAY ==
[2024-10-25] VITALS (9 sets, daily range): BP systolic 108–152; BP diastolic 65–102; PULSE 70–85; RESP 15–18; TEMP 36.6–37; O2SAT 96–98; BMI 28.8; BMI 28.5
--- NOTE | 2024-10-25 13:03 | ECG_ITS ---
APPROVED REPORT Exam: Resting ECG HR:77 bpm ECG Measurements Heart Rate 77 AXES TX 136 P 64 QRSd 146 QRS 61 QT 391 T 53 QTc 423 Conclusion SINUS RHYTHM RIGHT BUNDLE BRANCH BLOCK [120+ ms QRS DURATION, UPRIGHT V1, 40+ ms S IN I/aVL/V4/V5/V6] ABNORMAL ECG UNCONFIRMED REPORT Electronically signed by : ROMI POSADA, 10/26/2024 03:47:29
--- NOTE | 2024-10-25 13:04 | ED_ITS ---
Discharge Plan Prescriptions Prescriptions: No Action isosorbide mononitrate 60 mg tablet extended release 24 hr 60 mg PO DAILY 30 Days Qty: 30 5RF nitroglycerin 0.4 mg tablet, sublingual 0.4 mg sublingual Q5-15M PRN (Reason: chest pain) Qty: 30 1RF Rx Instructions: do not exceed 3 doses per episode esomeprazole magnesium [Nexium] 40 mg capsule,delayed release(DR/EC) 40 mg PO DAILY Patient Comments: TAKE 1 CAPSULE BY MOUTH DAILY. ropinirole 0.5 mg tablet 0.5 mg PO BID Patient Comments: TAKE 1 (ONE) TABLET BY MOUTH TWO TIMES DAILY lisinopril 10 mg tablet 10 mg PO DAILY Patient Comments: TAKE 1 TABLET BY MOUTH ONCE DAILY. escitalopram oxalate [Lexapro] 20 mg Tablet 20 mg PO DAILY pregabalin 200 mg capsule 200 mg PO BID Patient Comments: TAKE 1 CAPSULE BY MOUTH TWICE DAILY cholecalciferol (vitamin D3) [Vitamin D3] 25 mcg (1,000 unit) Tablet 25 mcg PO DAILY dapagliflozin propanediol [Farxiga] 10 mg tablet 10 mg PO DAILY Patient Comments: TAKE 1 TABLET BY MOUTH ONCE DAILY. Repatha SureClick 140 mg/mL pen injector 140 mg SQ DIRECTED Patient Comments: INJECT THE CONTENTS OF PEN SUBCUTANEOUSLY EVERY 2 WEEKS Rx Instructions: INJECT THE CONTENTS OF PEN SUBCUTANEOUSLY EVERY 2 WEEKS Mounjaro 10 mg/0.5 mL pen injector 10 mg SQ WEEKLY Patient Comments: INJECT 10 MG ONCE WEEKLY DIRECTED. cetirizine 10 mg Tablet 10 mg PO HS metoprolol succinate 25 mg Tablet Extended Release 24 Hr 25 mg PO DAILY 30 Days Qty: 30 0RF aspirin 81 mg Tablet,Delayed Release (Dr/Ec) 81 mg PO DAILY Qty: 30 0RF Print Language Print Language: Indonesian Discharge ED Provider: Balwinder Oconnell General Adult HPI General Stated complaint: chest pain Time Seen by Provider: 10/25/24 13:04 Related Data Home Medications ?Medication ?Instructions ?Recorded ?Confirmed cetirizine 10 mg tablet 10 mg PO HS 10/15/24 10/20/24 cholecalciferol (vitamin D3) 25 25 mcg PO DAILY 10/15/24 10/20/24 mcg (1,000 unit) tablet (Vitamin D3) dapagliflozin propanediol 10 mg 10 mg PO DAILY 10/15/24 10/20/24 tablet (Farxiga) escitalopram oxalate 20 mg tablet 20 mg PO DAILY 10/15/24 10/20/24 (Lexapro) esomeprazole magnesium 40 mg 40 mg PO DAILY 10/15/24 10/20/24 capsule,delayed release (Nexium) evolocumab 140 mg/mL subcutaneous 140 mg SQ DIRECTED 10/15/24 10/20/24 pen injector (José Tamayo) lisinopril 10 mg tablet 10 mg PO DAILY 10/15/24 10/20/24 pregabalin 200 mg capsule 200 mg PO BID 10/15/24 10/20/24 ropinirole 0.5 mg tablet 0.5 mg PO BID 10/15/24 10/20/24 tirzepatide 10 mg/0.5 mL 10 mg SQ WEEKLY 10/15/24 10/20/24 subcutaneous pen injector (Yamel) Previous Rx's ?Medication ?Instructions ?Recorded aspirin 81 mg tablet,delayed 81 mg PO DAILY #30 tabs 10/16/24 release metoprolol succinate 25 mg 25 mg PO DAILY 30 days #30 tabs 10/16/24 tablet,extended release 24 hr isosorbide mononitrate 60 mg 60 mg PO DAILY 30 days #30 tabs 10/20/24 tablet,extended release 24 hr nitroglycerin 0.4 mg sublingual 0.4 mg sublingual Q5-15M PRN chest 10/20/24 tablet pain #30 tabs Allergies Allergy/AdvReac Type Severity Reaction Status Date / Time Iodinated Contrast Media Allergy Anaphylaxis Verified 10/20/24 15:23 [id number] Reductase Allergy Muscle Pain Verified 10/20/24 15:23 Inhibitor PFSH PFS Disclaimer: The information contained in this section may have been updated after the patient was seen, as this information can be updated by other users. Medical History Sleep apnea Kidney stone Diabetes type 2 History of nephrolithotomy with removal of calculi Dehydration Bowel perforation Sepsis 2022 Chest pain Neuropathy Restless leg syndrome Surgical History H/O inguinal hernia repair Family History Mother Heart disease Social History Smoking Status: Never smoker alcohol intake: never current occupational status: employed Travel in the last 8 weeks: None Other Medical History Have you received the Flu Vaccine for this season: No Have you received the Pneumonia Vaccine: No ROS Obtained: Yes All systems reviewed & no additional complaints except as documented Physical Exam General General appearance: alert and in no apparent distress Head Head exam: atraumatic Eye Eye exam: Present normal appearance, PERRL and EOMI Neck Neck exam: Present normal inspection and full ROM Chest Chest inspection: Present symmetric chest wall rise Respiratory Respiratory exam: Present normal lung sounds bilaterally; Absent respiratory distress Cardiovascular Cardiovascular exam: Present regular rate and normal rhythm Abdominal Exam Abdominal exam: Present soft; Absent distention Extremities Exam Extremities exam: Present normal inspection Neurological Exam Neurological exam: Present alert and oriented X3 Psychiatric Psychiatric exam: Present normal affect and normal mood Skin Skin exam: Present warm and dry Medical Decision Making Medical Records Medical records reviewed: Yes I reviewed the patient's medical records. Screening: Per USPSTF and CDC recommendations, given the prevalence of disease in our region, it is our hospital?s policy to screen for HIV and viral Hepatitis for all patients aged 18 and over and those with ongoing risk factors. Jer Inquiry Pt receiving controlled substance: No
--- NOTE | 2024-10-25 13:24 | XR_ITS ---
PROCEDURE INFORMATION: Exam: XR Chest Exam date and time: 10/25/2024 1:25 PM Age: 59 years old Clinical indication: Other: Chest pain TECHNIQUE: Imaging protocol: Radiologic exam of the chest. Views: 2 views. COMPARISON: CR XR CHEST 2V 10/15/2024 6:20 PM FINDINGS: Lungs: Unremarkable. No consolidation. Pleural spaces: Unremarkable. No pleural effusion. No pneumothorax. Heart/Mediastinum: Unremarkable. No cardiomegaly. Bones/joints: Unremarkable. IMPRESSION: No acute findings.
[2024-10-25 13:28] LABS: Basophils % 0.5 % (0.1-2.0); Eosinophils # 0.2 Kmm3 (0.0-0.4); Eosinophils % 2.3 % (0.1-12.0); Hematocrit 45.3 % (42.0-52.0); Hemoglobin 16.7 g/dL (14.1-18.0); Lymphocytes % 36.7 % (10-50); Mean Corpuscular HGB Conc 36.9 g/dL (31.8-35.4); Mean Corpuscular Hemoglobin 32.2 pg (27.0-31.2); Mean Corpuscular Volume 87.3 fl (80-94); Mean Platelet Volume 10.4 fl (7.4-10.4); Monocytes # 0.6 K/mm3 (0.1-1.0); Monocytes % 7.3 % (1.7-9.3); Neutrophils # 4.3 K/mm3 (1.8-7.8); Neutrophils % 52.6 % (37.0-80.0); Nucleated Red Blood Cells # 0 10^3/uL; Nucleated Red Blood Cells % 0 %; Platelet Count 346 K/mm3 (142-424); Red Blood Count 5.19 M/mm3 (4.60-6.20); Red Cell Distribution Width 12.3 % (11.5-17.5); White Blood Count 8.1 K/mm3 (4.8-10.8)
[2024-10-25] MEDS: KETOROLAC 30MG/ML VIAL 15 MG IV (13:28)
[2024-10-25] MEDS: ACETAMINOPHEN 500MG TAB 1000 MG PO (13:28)
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
[2024-10-25 13:35] LABS: Anion Gap 9.1 mEq/L (5-15); Blood Urea Nitrogen 13 mg/dl (9-20); Calcium 9.4 mg/dl (8.4-10.2); Carbon Dioxide 31 mmol/L (22.0-30.0); Chloride 103 mmol/L (98-107); Creatinine Clearance Estimated 146 mL/min (50-200); Estimated Glomerular Filt Rate 116 ml/min (>60); GFR (African American) 141 ML/MIN (>60); Glucose 193 mg/dl (74-100); Potassium 4.1 mmoL/L (3.5-5.1); Sodium 139 mmol/L (136-145)
[2024-10-25 13:40] LABS: D-Dimer 0.66 ug/mL (0.0-0.5)
[2024-10-25 13:49] LABS: NT Pro Brain Natriuretic Pep. 67.9 pg/mL (0-125)
[2024-10-25 13:50] LABS: Troponin I < 0.01 ng/ml (0.00-0.034)
[2024-10-25 13:54] LABS: Procalcitonin 0.053 ng/mL (0.0-2.0)
--- NOTE | 2024-10-25 14:05 | PC.NURSE ---
DON talking to hospitalisat
--- NOTE | 2024-10-25 14:06 | PC.NURSE ---
manager warehouse notified of admission
--- NOTE | 2024-10-25 14:24 | PC.NURSE ---
report called to melchor billings on second floor
--- NOTE | 2024-10-25 14:30 | HMH.PHAINT1 ---
Pharmacy Intervention Comments: MEDICATION RECONCILIATION COMPLETE USING LIST FROM RECENT HOSPITAL DISCHARGE, [facility]O REPORT, AND CARDIOLOGY OFFICE VISIT NOTE.
--- NOTE | 2024-10-25 15:11 | P.HP_ITS ---
History of Present Illness *Admission Date: 10/25/24 *Reason for visit:: Chest pain *History of present illness: Avel Weber is a 59-year-old male with a medical history significant for type 2 diabetes, hypertension, GERD, anxiety/depression, neuropathy, contrast anaphylaxis who presents with acute on chronic left-sided chest pains. He states this episode began early this morning at 7 AM, waking him up. He describes it as left-sided aching chest pain, with associated shortness of breath, with apparent radiation from left shoulder to fingers as well as jaw pain. He also states chest pain is radiating to his back between the scapula, the first for this symptom. He states he has had intermittent episodes of this today at which point he proceeded to come to the ED. He has had these episodes for several weeks, being evaluated by cardiology. He had a stress test 1 week ago which was abnormal at which point cardiology wanted to proceed with a LHC with that is being scheduled outpatient. Patient is a non-smoker, nondrinker. Reports intermittent chills today, but otherwise denies fevers, abdominal pain. Workup in the ED significant for normal troponins, unremarkable EKG. Otherwise CBC, CMP relatively normal. ED reached out to Dr. Pascal who recommended LHC in the morning. Patient does have a contrast allergy so I reached out to Dr. Pascal who recommended Solu-Medrol 125 mg every 6 hours, famotidine 40 mg, with the plan for Benadryl tomorrow. [facility] Disclaimer: The information contained in this section may have been updated after the patient was seen, as this information can be updated by other users. Medical History Sleep apnea Kidney stone Diabetes type 2 History of nephrolithotomy with removal of calculi Dehydration Bowel perforation Sepsis 2022 Chest pain Neuropathy Restless leg syndrome Surgical History H/O inguinal hernia repair Family History Mother Heart disease Social History (Updated 10/25/24 @ 14:57 by Joseilne Nick RN) Smoking Status: Never smoker alcohol intake: never current occupational status: employed Travel in the last 8 weeks: None Have you lived/traveled outside [place] in past 30 days?: No Contact w/someone who lives/traveled outside US past 30 days?: No Exposure to someone with infectious disease in past 14 days?: No Do you have a fever (greater than 100.4 F or 38 C)?: No Have you tested positive for COVID-19: No Exposed to someone with COVID-19 in past 14 days?: No Do you have a sore throat?: No Do you have a cough?: No Do you have any weakness?: No Do you have any diarrhea?: No Are you experiencing any unusual bleeding?: No Do you have any muscle aches/pain?: No Do you have any abdominal pain?: No Are you experiencing loss of taste or smell?: No Other Medical History Have you received the Flu Vaccine for this season: No Have you received the Pneumonia Vaccine: No Meds Home Medications and Allergies Home Medications ?Medication ?Instructions ?Recorded ?Confirmed ?Type cetirizine 10 mg tablet 10 mg PO HS 10/15/24 10/25/24 History cholecalciferol (vitamin D3) 25 25 mcg PO DAILY 10/15/24 10/25/24 History mcg (1,000 unit) tablet (Vitamin D3) dapagliflozin propanediol 10 mg 10 mg PO DAILY 10/15/24 10/25/24 History tablet (Farxiga) escitalopram oxalate 20 mg tablet 20 mg PO DAILY 10/15/24 10/25/24 History (Lexapro) esomeprazole magnesium 40 mg 40 mg PO DAILY 10/15/24 10/25/24 History capsule,delayed release (Nexium) evolocumab 140 mg/mL subcutaneous 140 mg SQ DIRECTED 10/15/24 10/25/24 History pen injector (José Tamayo) lisinopril 10 mg tablet 10 mg PO DAILY 10/15/24 10/25/24 History pregabalin 200 mg capsule 200 mg PO BID 10/15/24 10/25/24 History ropinirole 0.5 mg tablet 1 mg PO BID 10/15/24 10/25/24 History tirzepatide 10 mg/0.5 mL 10 mg SQ WEEKLY 10/15/24 10/25/24 History subcutaneous pen injector (Yamel) aspirin 81 mg tablet,delayed 81 mg PO DAILY #30 tabs 10/16/24 10/25/24 Rx release metoprolol succinate 25 mg 25 mg PO DAILY 30 days #30 tabs 10/16/24 10/25/24 Rx tablet,extended release 24 hr isosorbide mononitrate 60 mg 60 mg PO DAILY 30 days #30 tabs 10/20/24 10/25/24 Rx tablet,extended release 24 hr nitroglycerin 0.4 mg sublingual 0.4 mg sublingual Q5MINP PRN chest 10/25/24 10/25/24 History tablet pain New Prescriptions to Start Prescriptions: Allergies Allergy/AdvReac Type Severity Reaction Status Date / Time Iodinated Contrast Media Allergy Anaphylaxis Verified 10/25/24 14:23 [id number] Reductase Allergy Muscle Pain Verified 10/25/24 14:23 Inhibitor Exam Data for Last 24 hours Vital signs and Labs for Last 24 Hours: Temp Pulse Resp BP Pulse Ox O2 Del Method 98.1 F 71 17 109/70 L 96 Room Air 10/25/24 14:34 10/25/24 14:40 10/25/24 14:40 10/25/24 14:40 10/25/24 14:40 10/25/24 15:00 Laboratory Results - last 24 hr 10/25/24 13:05: WBC 8.1, RBC 5.19, Hgb 16.7, Hct 45.3, MCV 87.3, MCH 32.2 H, MCHC 36.9 H, RDW 12.3, Plt Count 346, MPV 10.4, Neut % (Auto) 52.6, Lymph % (Auto) 36.7, Rolette % (Auto) 7.3, Eos % (Auto) 2.3, Baso % (Auto) 0.5, Neut # (Auto) 4.3, Lymph # (Auto) 3.0, Rolette # (Auto) 0.6, Eos # (Auto) 0.2, Baso # (Auto) 0.0, D-Dimer 0.66 H, Sodium 139, Potassium 4.1, Chloride 103, Carbon Dioxide 31 H, Anion Gap 9.1, BUN 13, Creatinine 0.70, Estimated Creat Clear 146, Estimated GFR 116, Est GFR ( Amer) 141, Glucose 193 H, Calcium 9.4, Troponin I < 0.01, NT-Pro-B Natriuret Pep 67.9, Procalcitonin 0.053 I & O for Last 24 hours: Intake & Output 10/22/24 10/23/24 10/24/24 10/25/24 23:59 23:59 23:59 23:59 Weight 87.77 kg Constitutional Constitutional: no acute distress *Routine HEENT Exam Head: Present normocephalic Eye: Present EOMI and PERRL ENT: Present mucous membranes moist *Routine Neck Exam Neck: Present supple; Absent lymphadenopathy *Routine Respiratory Exam Respiratory: Present CTA bilaterally *Routine Cardiovascular Exam Cardiovascular: Present RRR *Routine Abdominal Exam Abdominal: Present soft and normoactive bowel sounds; Absent tenderness *Routine Rectal Exam Rectal:: deferred *Routine Genitalia Exam Genitalia:: deferred *Routine Extremities Exam Extremities: Absent cyanosis, clubbing or edema *Routine Skin Exam Skin: Present warm; Absent rash *Routine Neurological Exam Neurological: Present alert and oriented X3 Assessment and Plan *Assessment and plan (1) Unstable angina: Status: Acute Category: Medical Code(s): I20.0 - Unstable angina Plan Avel Weber is a 59-year-old male with a medical history significant for type 2 diabetes, hypertension, GERD, anxiety/depression, neuropathy, contrast anaphylaxis who presents with acute on chronic left-sided chest pains. He states this episode began early this morning at 7 AM, waking him up. He describes it as left-sided aching chest pain, with associated shortness of breath, with apparent radiation from left shoulder to fingers as well as jaw pain. He also states chest pain is radiating to his back between the scapula, the first for this symptom. He states he has had intermittent episodes of this today at which point he proceeded to come to the ED. He has had these episodes for several weeks, being evaluated by cardiology. He had a stress test 1 week ago which was abnormal at which point cardiology wanted to proceed with a LHC with that is being scheduled outpatient. Patient is a non-smoker, nondrinker. Reports intermittent chills today, but otherwise denies fevers, abdominal pain. Workup in the ED significant for normal troponins, unremarkable EKG. Otherwise CBC, CMP relatively normal. ED reached out to Dr. Pascal who recommended LHC in the morning. Patient does have a contrast allergy so I reached out to Dr. Pascal who recommended Solu-Medrol 125 mg every 6 hours, famotidine 40 mg, with the plan for Benadryl tomorrow. #Chest pain #Unstable angina #Hypertension #GERD ? Left-sided chest pains with radiation down left arm, to the back. EKG, troponins unremarkable. ? While ACS remains the leading diagnosis, with chest pain radiating to mid shoulder blades we need to rule out aortic dissection/aneurysm. Reassuringly, blood pressure in both arms are similar and normal. Other vital signs normal. Patient appears very comfortable, but does endorse intermittent chest pains radiating to the back. ? Spoke with radiology regarding CTA chest with a history of contrast anaphylaxis, will need IV Solu-Medrol 125 mg at least 4 hours prior, IV Benadryl 50 mg 1 hour prior, and IV famotidine 20 mg 1 hour prior. These will be scheduled for 10 PM and CTA chest shortly thereafter. ? Per Dr. Pascal recommendation, IV Solu-Medrol 125 mg scheduled every 6 hours. ? Continue aspirin 81 mg, metoprolol succinate 25 mg, atorvastatin 40 mg, Imdur 60 mg, lisinopril 10 mg, Protonix. Therapeutic Lovenox 90 mg given. ? A1c 7.8, TSH normal, follow-up LDL. ? ECHO on 10/16/2024 showed normal biventricular systolic function. Did show mildly thickened aortic valve. ? N.p.o. at midnight. LHC in the morning. ? Continuous cardiac telemetry. #Type 2 diabetes ? Hemoglobin A1c 7.8%. ? LDSSI, ACHS glucose suspect ? Continue home Farxiga 10 mg. #Restless leg syndrome ? Continue home Requip 1 mg twice daily. Full code DVT prophylaxis: Therapeutic Lovenox given, hold morning AC pending [facility].
[2024-10-25] MEDS: ENOXAPARIN 100MG/ML SYRINGE 90 MG SUBCUT (15:59)
[2024-10-25] MEDS: METHYLPREDNISOLONE SOD SUCC 125MG VIAL 125 MG IV ×2 (16:00→20:44)
[2024-10-25] MEDS: FAMOTIDINE 20MG TABLET 40 MG PO (16:00)
[2024-10-25 16:11] LABS: POC Glucose,Bedside 163 (70-110)
[2024-10-25] MEDS: ASPIRIN 325MG TABLET 243 MG PO (16:14)
[2024-10-25 17:04] LABS: Troponin I < 0.01 ng/ml (0.00-0.034)
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
[2024-10-25 20:19] LABS: Troponin I < 0.01 ng/ml (0.00-0.034)
[2024-10-25] MEDS: PANTOPRAZOLE 40MG TABLET 40 MG PO (20:44)
--- NOTE | 2024-10-25 20:54 | PC.NURSE ---
Patient's glucose was checked via fingerstick this evening. For the 21:00 check, his glucose reading was 288. The patient stated that he did not want to take any insulin coverage tonight because he had already taken his weekly Mounjaro injection earlier today.
[2024-10-25 21:01] LABS: POC Glucose,Bedside 288 (70-110)
[2024-10-26] VITALS (13 sets, daily range): BP systolic 119–159; BP diastolic 70–100; PULSE 80–105; RESP 14–18; TEMP 36.5–36.6; O2SAT 92–100; BMI 28.3
[2024-10-26] MEDS: METHYLPREDNISOLONE SOD SUCC 125MG VIAL 125 MG IV ×2 (03:37→09:20)
--- NOTE | 2024-10-26 04:22 | PC.NURSE ---
Patient is alert and oriented x4. He was observed to have eyes closed, respirations even/unlabored on room air, and no apparent distress throughout the majority of the night. His has remained at the bedside. He has had complaints of intermittent chest pain, stating that the pain would radiate to between [his] shoulder blades, as well as down his arms, on occasion. He stated that, although the pain is bearable, he does not want to take anything right now to relieve his chest pain upon the offer, so that he could monitor the frequency and severity, as well as report any changes in the chest pain occurrences. He also stated that he has some dizziness during movement. He ambulates independently without difficulty or unsteadiness. Scheduled medications were administered as appropriately per AUG. Auscultation of his heart, lungs, and bowel sounds were within normal findings. Normal sinus rhythm on telemetry. Vital signs stable. Patient has remained NPO since midnight pending cardiology consult, previously tolerating a diabetic diet very well. ACHS glucose checks performed. At this time, the patient is resting in bed without further complaints. No new needs at this time. Call light within reach.
[2024-10-26 05:31] LABS: POC Glucose,Bedside 236 (70-110)
[2024-10-26 06:22] LABS: Basophils % 0.2 % (0.1-2.0); Eosinophils % 0.1 % (0.1-12.0); Hematocrit 43.3 % (42.0-52.0); Hemoglobin 15.4 g/dL (14.1-18.0); Lymphocytes # 1.1 K/mm3 (0.7-4.5); Lymphocytes % 9.3 % (10-50); Mean Corpuscular HGB Conc 35.6 g/dL (31.8-35.4); Mean Corpuscular Hemoglobin 30.7 pg (27.0-31.2); Mean Corpuscular Volume 86.3 fl (80-94); Mean Platelet Volume 10.2 fl (7.4-10.4); Monocytes # 0.1 K/mm3 (0.1-1.0); Monocytes % 0.5 % (1.7-9.3); Neutrophils # 10.7 K/mm3 (1.8-7.8); Neutrophils % 89.4 % (37.0-80.0); Nucleated Red Blood Cells # 0 10^3/uL; Nucleated Red Blood Cells % 0 %; Platelet Count 297 K/mm3 (142-424); Red Blood Count 5.02 M/mm3 (4.60-6.20); Red Cell Distribution Width 12.3 % (11.5-17.5); Red Cell Distribution Width-SD 38.3 fL; White Blood Count 11.9 K/mm3 (4.8-10.8)
[2024-10-26 06:24] LABS: Albumin Level 4.1 g/dl (3.5-5.0); Chloride 105 mmol/L (98-107); Sodium 136 mmol/L (136-145)
[2024-10-26 06:25] LABS: Potassium 4.3 mmoL/L (3.5-5.1)
[2024-10-26 06:27] LABS: Alanine Aminotransferase 28 U/L (12-78); Albumin/Globulin Ratio 1.6 (1.1-1.8); Alkaline Phosphatase 85 U/L (38-126); Anion Gap 14.3 mEq/L (5-15); Aspartate Amino Transferase 23 U/L (17-59); Bilirubin,Total 0.8 mg/dl (0.2-1.3); Blood Urea Nitrogen 20 mg/dl (9-20); Calcium 9.2 mg/dl (8.4-10.2); Carbon Dioxide 21 mmol/L (22.0-30.0); Cholesterol 153 mg/dl (140-200); Creatinine Clearance Estimated 111 mL/min (50-200); Estimated Glomerular Filt Rate 87 ml/min (>60); GFR (African American) 105 ML/MIN (>60); Globulin 2.5 g/dL (1.3-3.2); Glucose 242 mg/dl (74-100); Total Protein,Serum 6.6 g/dl (6.3-8.2); Triglycerides 67 mg/dl (30-150); VLDL Cholesterol 13 mg/dL (0-40)
[2024-10-26 06:28] LABS: Chol/HDL Ratio 2.8 (1-3.5); HDL Cholesterol 55 mg/dl (40-60); Magnesium 1.7 mg/dl (1.6-2.3)
[2024-10-26 06:39] LABS: Direct LDL Cholesterol 80.76 mg/dL (100-129)
--- NOTE | 2024-10-26 08:53 | IR_ITS ---
APPROVED REPORT Patient Location: Inpatient PROCEDURES Left heart catheterization Left ventriculogram Selective coronary angiogram Intravascular ultrasound the left main artery Intravascular ultrasound to the LAD Intravascular ultrasound to the circumflex artery INDICATION Abnormal Myoview, Unstable angina, Angiographic ambiguity, Coronary artery disease Informed consent was obtained prior to the procedure. COMPLICATIONS NONE Estimated Blood Loss: LESS THAN 10 ML TECHNIQUE One percent lidocaine used to anesthetize the right anterior aspect of the wrist. The right radial artery was accessed via the Seldinger technique. A 6 Solomon Islander sheath was placed in the right radial artery. 2.5 mg of Verapamil, 800 mcg of nitroglycerin, 1mg Lidocaine and 5000 U Heparin were given through the arterial sheath. The 6 [place] Islander JL 3 guide catheter was also used to perform left heart catheterization, left ventriculogram and selective coronary angiogram. At the end of the diagnostic angiogram therapeutic Was administered given a therapeutic ACT and the guide catheter was placed in the left main artery followed by a BMW wire into the circumflex artery. Intravascular ultrasound probe was advanced which demonstrated mild ostial plaque in the circumflex artery. There was plaque in the left main artery which measured 9.3 mm??? MLA. The wire was inserted into the LAD and IVUS was repeated with a MLA of 10.2 in the ostial proximal left anterior descending artery. Since none of the MLA's met hemodynamic significance the apparatus was removed the sheath was removed and hemostasis achieved using TR banding patient was transferred to the postop putting in stable condition ANGIOGRAPHIC RESULTS The left main artery Has an ostial proximal 40% stenosis by plaque burden on IVUS with an angiographic stenosis of 30% The left anterior descending artery Widely patent mild luminal regularities The circumflex artery Codominant mild luminal regularities The right coronary artery Codominant mild luminal regularities The ARRIOLA ventriculogram reveals Normal 65% The left ventricular end-diastolic pressure 10 mmHg IMPRESSION Moderate nonflow limiting ostial left main coronary artery disease with heavy plaque burden creating an MLA of 9.3 mm??? which does not meet hemodynamic significance for revascularization Normal ejection fraction Normal LVEDP PLAN 1. Aggressive risk factor modification 2. LDL less than 55 to achieve that high intensity statin 3. Patient was tachycardic and hypertensive prior to the procedure. He would likely benefit from higher doses of beta-blockers Electronically signed by : Roberto Pascal MD 10/26/2024 12:12:50
--- NOTE | 2024-10-26 09:12 | P.CONCA_ITS ---
History of Present Illness History of Present Illness Consult date: 10/26/24 Requesting physician: Yousif Caro Consult reason: chest pain Chief complaint: chest pain History of present illness: Hospitalist note: Avel Weber is a 59-year-old male with a medical history significant for type 2 diabetes, hypertension, GERD, anxiety/depression, neuropathy, contrast anaphylaxis who presents with acute on chronic left-sided chest pains. He states this episode began early this morning at 7 AM, waking him up. He describes it as left-sided aching chest pain, with associated shortness of breath, with apparent radiation from left shoulder to fingers as well as jaw pain. He also states chest pain is radiating to his back between the scapula, the first for this symptom. He states he has had intermittent episodes of this today at which point he proceeded to come to the ED. He has had these episodes for several weeks, being evaluated by cardiology. He had a stress test 1 week ago which was abnormal at which point cardiology wanted to proceed with a LHC with that is being scheduled outpatient. Patient is a non- smoker, nondrinker. Reports intermittent chills today, but otherwise denies fev ers, abdominal pain. Workup in the ED significant for normal troponins, unremarkable EKG. Otherwise CBC, CMP relatively normal. ED reached out to Dr. Pascal who recommended LHC in the morning. Patient does have a contrast allergy so I reached out to Dr. Pascal who recommended Solu-Medrol 125 mg every 6 hours, famotidine 40 mg, with the plan for Benadryl tomorrow. Cardiology note: This is a 59-year-old white male with past medical history as noted above who was admitted last night for unstable angina. Patient reports he has continue to have intermittent episodes of chest pain throughout the evening radiating to jaw and left shoulder associated with shortness of breath. Patient reports a history of anaphylaxis with IV contrast 20 years ago. Discussed the risk versus benefits of proceeding with left heart catheterization today for unstable angina and stress test, he is agreeable to proceed. Patient has been premedicated with IV Solu-Medrol, Benadryl and Pepcid. Echo from 10/18/2024 shows a normal biventricular systolic function with a mildly thickened aortic valve cannot rule out bicuspid aortic valve. Morning labs reviewed and stable. [facility] Disclaimer: The information contained in this section may have been updated after the patient was seen, as this information can be updated by other users. Medical History Sleep apnea Kidney stone Diabetes type 2 History of nephrolithotomy with removal of calculi Dehydration Bowel perforation Sepsis 2022 Chest pain Neuropathy Restless leg syndrome Surgical History H/O inguinal hernia repair Family History Mother Heart disease Social History (Updated 10/25/24 @ 14:57 by Joseline Nick RN) Smoking Status: Never smoker alcohol intake: never current occupational status: employed Travel in the last 8 weeks?: None Review of Systems Review of Systems Review of systems:: pertinent systems reviewed and negative unless documented below Constitutional Constitutional: Reports system reviewed and no additional complaints, except as documented *Cardiovascular Cardiovascular: Reports chest pain and Reports dyspnea on exertion *Respiratory Respiratory: Reports system reviewed and no additional complaints, except as documented and Reports dyspnea on exertion *Gastrointestinal Gastrointestinal: Reports system reviewed and no additional complaints, except as documented *Neurologic Neurologic: Reports system reviewed and no additional complaints, except as documented and Denies confusion Psychiatric Psychiatric: Reports system reviewed and no additional complaints, except as documented and Denies confusion Exam Data for Last 24 hours Vital signs and Labs for Last 24 Hours: Temp Pulse Resp BP Pulse Ox O2 Del Method 98 F 100 H 14 131/73 100 Room Air 10/26/24 07:27 10/26/24 08:00 10/26/24 07:27 10/26/24 07:27 10/26/24 07:27 10/26/24 07:27 Laboratory Results - last 24 hr 10/25/24 13:05: WBC 8.1, RBC 5.19, Hgb 16.7, Hct 45.3, MCV 87.3, MCH 32.2 H, MCHC 36.9 H, RDW 12.3, Plt Count 346, MPV 10.4, Neut % (Auto) 52.6, Lymph % (Auto) 36.7, Cherry % (Auto) 7.3, Eos % (Auto) 2.3, Baso % (Auto) 0.5, Neut # (Auto) 4.3, Lymph # (Auto) 3.0, Cherry # (Auto) 0.6, Eos # (Auto) 0.2, Baso # (Auto) 0.0, D-Dimer 0.66 H, Sodium 139, Potassium 4.1, Chloride 103, Carbon Dioxide 31 H, Anion Gap 9.1, BUN 13, Creatinine 0.70, Estimated Creat Clear 146, Estimated GFR 116, Est GFR ( Amer) 141, Glucose 193 H, Calcium 9.4, Troponin I < 0.01, NT-Pro-B Natriuret Pep 67.9, Procalcitonin 0.053 10/25/24 15:57: POC Glucose 163 H 10/25/24 16:30: Troponin I < 0.01 10/25/24 19:30: Troponin I < 0.01 10/25/24 20:52: POC Glucose 288 H 10/26/24 05:18: POC Glucose 236 H 10/26/24 05:37: WBC 11.9 H D, RBC 5.02, Hgb 15.4, Hct 43.3, MCV 86.3, MCH 30.7, MCHC 35.6 H, RDW 12.3, Plt Count 297, MPV 10.2, Neut % (Auto) 89.4 H, Lymph % (Auto) 9.3 L, Cherry % (Auto) 0.5 L, Eos % (Auto) 0.1, Baso % (Auto) 0.2, Neut # (Auto) 10.7 H, Lymph # (Auto) 1.1, Cherry # (Auto) 0.1, Eos # (Auto) 0.0, Baso # (Auto) 0.0, Sodium 136, Potassium 4.3, Chloride 105, Carbon Dioxide 21 L, Anion Gap 14.3, BUN 20 D, Creatinine 0.90 D, Estimated Creat Clear 111, Estimated GFR 87, Est GFR ( Amer) 105 D, Glucose 242 H D, Calcium 9.2, Magnesium 1.7, Total Bilirubin 0.8, AST 23, ALT 28, Alkaline Phosphatase 85, Total Protein 6.6, Albumin 4.1, Globulin 2.5, Albumin/Globulin Ratio 1.6, Triglycerides 67, Cholesterol 153, LDL Cholesterol Direct 80.76 L, VLDL Cholesterol 13, HDL Cholesterol 55, Cholesterol/HDL Ratio 2.8 I & O for Last 24 hours: Intake & Output 10/23/24 10/24/24 10/25/24 10/26/24 23:59 23:59 23:59 23:59 Intake Total 510 / 810 300 / 300 Output Total 0 / 0 0 / 0 Balance 510 / 810 300 / 300 Weight 193 lb 8 oz 191 lb 6.4 oz Constitutional Constitutional: no acute distress *Routine Respiratory Exam Respiratory: Present CTA bilaterally and symmetric chest movement *Routine Cardiovascular Exam Cardiovascular: Present RRR, Normal S1 and Normal S2 *Routine Abdominal Exam Abdominal: Present soft and normoactive bowel sounds; Absent tenderness *Routine Extremities Exam Extremities: Present full ROM and normal capillary refill; Absent edema *Routine Skin Exam Skin: Present intact, dry and warm Detailed Neck Exam: Thyroids Thyroid: Absent bruit Meds Home Medications and Allergies Home Medications ?Medication ?Instructions ?Recorded ?Confirmed ?Type cetirizine 10 mg tablet 10 mg PO HS 10/15/24 10/25/24 History cholecalciferol (vitamin D3) 25 25 mcg PO DAILY 10/15/24 10/25/24 History mcg (1,000 unit) tablet (Vitamin D3) dapagliflozin propanediol 10 mg 10 mg PO DAILY 10/15/24 10/25/24 History tablet (Farxiga) escitalopram oxalate 20 mg tablet 20 mg PO DAILY 10/15/24 10/25/24 History (Lexapro) evolocumab 140 mg/mL subcutaneous 140 mg SQ DIRECTED 10/15/24 10/25/24 History pen injector (José Tamayo) lisinopril 10 mg tablet 10 mg PO DAILY 10/15/24 10/25/24 History pregabalin 200 mg capsule 200 mg PO BID 10/15/24 10/25/24 History tirzepatide 10 mg/0.5 mL 10 mg SQ WEEKLY 10/15/24 10/25/24 History subcutaneous pen injector (Migueltiounjaro) aspirin 81 mg tablet,delayed 81 mg PO DAILY #30 tabs 10/16/24 10/25/24 Rx release isosorbide mononitrate 60 mg 60 mg PO DAILY 30 days #30 tabs 10/20/24 10/25/24 Rx tablet,extended release 24 hr nitroglycerin 0.4 mg sublingual 0.4 mg sublingual Q5MINP PRN chest 10/25/24 10/25/24 History tablet pain nadolol 40 mg tablet 40 mg PO DAILY 30 days #30 tabs 10/26/24 Rx pantoprazole 40 mg tablet,delayed 40 mg PO BID 30 days #60 tabs 10/26/24 Rx release (Protonix) ropinirole 2 mg tablet 2 mg PO BID 30 days #60 tabs 10/26/24 Rx New Prescriptions to Start Prescriptions: jolieolol Roberto Pascal pantoprazole [Protonix] Yousif Caro ropinirole Roberto Pascal Allergies Allergy/AdvReac Type Severity Reaction Status Date / Time Iodinated Contrast Media Allergy Anaphylaxis Verified 10/25/24 14:23 [id number]-[id number] Reductase Allergy Muscle Pain Verified 10/25/24 14:23 Inhibitor Assessment and Plan *Assessment and plan (1) Unstable angina: Status: Acute Category: Medical Code(s): I20.0 - Unstable angina (2) Hyperlipidemia: Status: Acute Qualifiers: Hyperlipidemia type: other hyperlipidemia Qualified Code(s): E78.49 - Other hyperlipidemia Category: Medical Code(s): E78.5 - Hyperlipidemia, unspecified (3) Hypertension: Status: Acute Qualifiers: Hypertension type: primary hypertension Qualified Code(s): I10 - Esse ntial (primary) hypertension Category: Medical Code(s): I10 - Essential (primary) hypertension Plan Unstable angina Chest pain Abnormal stress test noted 09/2024 Echo shows normal biventricular systolic function with possible bicuspid aortic valve Patient endorses intermittent episodes of chest pain with activity and at rest which are becoming more frequent and intense Will proceed with left heart catheterization for further evaluation. Discussed risk versus benefits with patient he is agreeable to proceed. Has a known history of contrast anaphylaxis and has been premedicated with Solu-Medrol, Benadryl and Pepcid. Continue aspirin 81 mg p.o. daily and metoprolol succinate 25 mg daily. Patient is statin intolerant continue Repatha Hypertension Well-controlled today Continue lisinopril 10 mg p.o. daily and Toprol 25 mg p.o. daily CV summary 10/26/2024: Will proceed with left heart catheterization for unstable angina. Cardiac meds Aspirin 81 mg p.o. daily Jardiance 10 mg p.o. daily Imdur 60 mg p.o. daily Lisinopril 10 mg p.o. daily Metoprolol succinate 25 mg p.o. daily Repatha 140 mg subcu every 2 weeks
[2024-10-26] MEDS: MAGNESIUM SULFATE IN WATER 2 GM/50 ML PIGGYBACK IV ×2 (09:20→10:29)
[2024-10-26] MEDS: FAMOTIDINE 20MG/2ML VIAL 20 MG IV (11:05)
[2024-10-26] MEDS: LIDOCAINE 1% 10ML MDV 10 ML IJ (11:05)
[2024-10-26] MEDS: HEPARIN 1,000 UNITS/500ML NS (CATH LAB) 3000 UNIT IV (11:05)
[2024-10-26] MEDS: VERAPAMIL 2.5MG/ML 2ML VIAL 2.5 MG IV (11:06)
[2024-10-26] MEDS: diphenhydrAMINE 50MG/ML VIAL 50 MG IV (11:06)
[2024-10-26] MEDS: NITROGLYCERIN 800MCG/8ML SYR (CATH LAB) 800 MCG IA (11:06)
[2024-10-26] MEDS: 0.9 % SODIUM CHLORIDE 500 ML 25 ML IV (11:06)
[2024-10-26] MEDS: HEPARIN 1,000 UNITS/ML 10ML VIAL (CATH LAB) 5000 UNIT IV (11:06)
[2024-10-26] MEDS: MIDAZOLAM HCL 1MG/ML 5ML VIAL 1 MG IV (11:07)
[2024-10-26] MEDS: FENTANYL 100MCG/2ML VIAL 50 MCG IV (11:07)
--- NOTE | 2024-10-26 12:38 | CT_ITS ---
FINAL REPORT TECHNIQUE: The patient was injected with IV contrast. Axial images were obtained through the chest in a PE protocol. 3-D reconstruction images were also performed. Individualized dose reduction techniques using automated exposure control or adjustment of the MA and/or KV according to patient's size were employed. CLINICAL HISTORY: chest pain with radiation to back FINDINGS: Mediastinal vasculature is adequately opacified. No pulmonary artery filling defects are identified to suggest PE. There is no aortic dissection. There is no axillary adenopathy. There is no hilar or mediastinal adenopathy. The heart size is normal. There is no pericardial or pleural effusion. Limited images of the upper abdomen a small sliding-type hiatal hernia. There is no suspicious pulmonary nodule. There is bibasilar atelectasis. IMPRESSION: No pulmonary embolus or dissection. Bibasilar atelectasis. Small sliding-type hiatal hernia. Reviewed, Interpreted and Dictated by Abhi Pierce MD Transcribed by Анна Gibson Authenticated and [facility]
[2024-10-26] MEDS: SODIUM CHLORIDE 0.9% 10ML SYR (RAD ONLY) 10 ML IV (13:03)
[2024-10-26] MEDS: IOPAMIDOL-370 (76%);100ML BOTTLE 70 ML IV (13:03)
[2024-10-26] MEDS: 0.9 % SODIUM CHLORIDE 50 ML VIAL IV (13:03)
[2024-10-26] MEDS: ASPIRIN EC 81MG TABLET 81 MG PO (13:05)
[2024-10-26] MEDS: ROPINIROLE 1MG TABLET 1 MG PO (13:06)
[2024-10-26] MEDS: ISOSORBIDE MONO 60MG TAB.ER.24H 60 MG PO (13:06)
[2024-10-26] MEDS: DAPAGLIFLOZIN PROPANEDIOL 10 MG TABLET PO (13:06)
[2024-10-26] MEDS: ESCITALOPRAM 20MG TABLET 20 MG PO (13:06)
[2024-10-26] MEDS: LISINOPRIL 10MG TABLET 10 MG PO (13:06)
[2024-10-26] MEDS: METOPROLOL SUCCINATE XL 25MG TABLET 25 MG PO ×2 (13:06→15:00)
[2024-10-26] MEDS: PREGABALIN 100MG CAPSULE 200 MG PO (13:08)
[2024-10-26] MEDS: IOPAMIDOL-370 (76%);100ML BOTTLE 210 ML IV (13:12)
--- NOTE | 2024-10-26 14:49 | EXP.DC.SUM ---
General Admission date:: 10/25/24 HPI HPI HPI: Avel Weber is a 59-year-old male with a medical history significant for type 2 diabetes, hypertension, GERD, anxiety/depression, neuropathy, contrast anaphylaxis who presents with acute on chronic left-sided chest pains. He states this episode began early this morning at 7 AM, waking him up. He describes it as left-sided aching chest pain, with associated shortness of breath, with apparent radiation from left shoulder to fingers as well as jaw pain. He also states chest pain is radiating to his back between the scapula, the first for this symptom. He states he has had intermittent episodes of this today at which point he proceeded to come to the ED. He has had these episodes for several weeks, being evaluated by cardiology. He had a stress test 1 week ago which was abnormal at which point cardiology wanted to proceed with a LHC with that is being scheduled outpatient. Patient is a non-smoker, nondrinker. Reports intermittent chills today, but otherwise denies fevers, abdominal pain. Workup in the ED significant for normal troponins, unremarkable EKG. Otherwise CBC, CMP relatively normal. ED reached out to Dr. Pascal who recommended LHC in the morning. Patient does have a contrast allergy so I reached out to Dr. Pascal who recommended Solu-Medrol 125 mg every 6 hours, famotidine 40 mg, with the plan for Benadryl tomorrow. Hospital Course Hospital Course Hospital Course: Total time spent on discharge: 32 minutes on chart review, counseling, documentation, and direct care with patient. Exam Data for Last 24 hours Vital signs and Labs for Last 24 Hours: Temp Pulse Resp BP Pulse Ox O2 Del Method 98 F 100 H 14 131/73 100 Room Air 10/26/24 07:27 10/26/24 08:00 10/26/24 07:27 10/26/24 07:27 10/26/24 07:27 10/26/24 13:00 Laboratory Results - last 24 hr 10/25/24 15:57: POC Glucose 163 H 10/25/24 16:30: Troponin I < 0.01 10/25/24 19:30: Troponin I < 0.01 10/25/24 20:52: POC Glucose 288 H 10/26/24 05:18: POC Glucose 236 H 10/26/24 05:37: WBC 11.9 H D, RBC 5.02, Hgb 15.4, Hct 43.3, MCV 86.3, MCH 30.7, MCHC 35.6 H, RDW 12.3, Plt Count 297, MPV 10.2, Neut % (Auto) 89.4 H, Lymph % (Auto) 9.3 L, Stark % (Auto) 0.5 L, Eos % (Auto) 0.1, Baso % (Auto) 0.2, Neut # (Auto) 10.7 H, Lymph # (Auto) 1.1, Stark # (Auto) 0.1, Eos # (Auto) 0.0, Baso # (Auto) 0.0, Sodium 136, Potassium 4.3, Chloride 105, Carbon Dioxide 21 L, Anion Gap 14.3, BUN 20 D, Creatinine 0.90 D, Estimated Creat Clear 111, Estimated GFR 87, Est GFR ( Amer) 105 D, Glucose 242 H D, Calcium 9.2, Magnesium 1.7, Total Bilirubin 0.8, AST 23, ALT 28, Alkaline Phosphatase 85, Total Protein 6.6, Albumin 4.1, Globulin 2.5, Albumin/Globulin Ratio 1.6, Triglycerides 67, Cholesterol 153, LDL Cholesterol Direct 80.76 L, VLDL Cholesterol 13, HDL Cholesterol 55, Cholesterol/HDL Ratio 2.8 I & O for Last 24 hours: Intake & Output 10/23/24 10/24/24 10/25/24 10/26/24 23:59 23:59 23:59 23:59 Intake Total 510 / 810 300 / 300 Output Total 0 / 0 400 / 400 Balance 510 / 810 -100 / -100 Weight 87.77 kg 86.818 kg Results Data Completed and Pending Labs on day of discharge: Labs from last 24 hours 10/26/24 10/26/24 10/25/24 05:37 05:18 20:52 WBC 11.9 H D RBC 5.02 Hgb 15.4 Hct 43.3 MCV 86.3 MCH 30.7 MCHC 35.6 H RDW 12.3 Plt Count 297 MPV 10.2 Neut % (Auto) 89.4 H Lymph % (Auto) 9.3 L Stark % (Auto) 0.5 L Eos % (Auto) 0.1 Baso % (Auto) 0.2 Neut # (Auto) 10.7 H Lymph # (Auto) 1.1 Stark # (Auto) 0.1 Eos # (Auto) 0.0 Baso # (Auto) 0.0 Sodium 136 Potassium 4.3 Chloride 105 Carbon Dioxide 21 L Anion Gap 14.3 BUN 20 D Creatinine 0.90 D Estimated Creat Clear 111 Estimated GFR 87 Est GFR ( Amer) 105 D Glucose 242 H D POC Glucose 236 H 288 H Calcium 9.2 Magnesium 1.7 Total Bilirubin 0.8 AST 23 ALT 28 Alkaline Phosphatase 85 Troponin I Total Protein 6.6 Albumin 4.1 Globulin 2.5 Albumin/Globulin Ratio 1.6 Triglycerides 67 Cholesterol 153 LDL Cholesterol Direct 80.76 L VLDL Cholesterol 13 HDL Cholesterol 55 Cholesterol/HDL Ratio 2.8 10/25/24 10/25/24 10/25/24 19:30 16:30 15:57 WBC RBC Hgb Hct MCV MCH MCHC RDW Plt Count MPV Neut % (Auto) Lymph % (Auto) Stark % (Auto) Eos % (Auto) Baso % (Auto) Neut # (Auto) Lymph # (Auto) Stark # (Auto) Eos # (Auto) Baso # (Auto) Sodium Potassium Chloride Carbon Dioxide Anion Gap BUN Creatinine Estimated Creat Clear Estimated GFR Est GFR ( Amer) Glucose POC Glucose 163 H Calcium Magnesium Total Bilirubin AST ALT Alkaline Phosphatase Troponin I < 0.01 < 0.01 Total Protein Albumin Globulin Albumin/Globulin Ratio Triglycerides Cholesterol LDL Cholesterol Direct VLDL Cholesterol HDL Cholesterol Cholesterol/HDL Ratio DS: Diagnosis Discharge Diagnosis (1) Unstable angina: Status: Acute Code(s): I20.0 - Unstable angina (2) Hyperlipidemia: Status: Acute Code(s): E78.5 - Hyperlipidemia, unspecified Qualifiers: Hyperlipidemia type: other hyperlipidemia Qualified Code(s): E78.49 - Other hyperlipidemia (3) Hypertension: Status: Acute Code(s): I10 - Essential (primary) hypertension Qualifiers: Hypertension type: primary hypertension Qualified Code(s): I10 - Essential (primary) hypertension Meds Home Medications and Allergies Home Medications ?Medication ?Instructions ?Recorded ?Confirmed ?Type cetirizine 10 mg tablet 10 mg PO HS 10/15/24 10/25/24 History cholecalciferol (vitamin D3) 25 25 mcg PO DAILY 10/15/24 10/25/24 History mcg (1,000 unit) tablet (Vitamin D3) dapagliflozin propanediol 10 mg 10 mg PO DAILY 10/15/24 10/25/24 History tablet (Farxiga) escitalopram oxalate 20 mg tablet 20 mg PO DAILY 10/15/24 10/25/24 History (Lexapro) evolocumab 140 mg/mL subcutaneous 140 mg SQ DIRECTED 10/15/24 10/25/24 History pen injector (Repaleisha SureRashardick) lisinopril 10 mg tablet 10 mg PO DAILY 10/15/24 10/25/24 History pregabalin 200 mg capsule 200 mg PO BID 10/15/24 10/25/24 History tirzepatide 10 mg/0.5 mL 10 mg SQ WEEKLY 10/15/24 10/25/24 History subcutaneous pen injector (Mounjaro) aspirin 81 mg tablet,delayed 81 mg PO DAILY #30 tabs 10/16/24 10/25/24 Rx release isosorbide mononitrate 60 mg 60 mg PO DAILY 30 days #30 tabs 10/20/24 10/25/24 Rx tablet,extended release 24 hr nitroglycerin 0.4 mg sublingual 0.4 mg sublingual Q5MINP PRN chest 10/25/24 10/25/24 History tablet pain nadolol 40 mg tablet 40 mg PO DAILY 30 days #30 tabs 10/26/24 Rx pantoprazole 40 mg tablet,delayed 40 mg PO BID 30 days #60 tabs 10/26/24 Rx release (Protonix) ropinirole 2 mg tablet 2 mg PO BID 30 days #60 tabs 10/26/24 Rx New Prescriptions to Start Prescriptions: Roberto Patel pantoprazole [Protonix] Yousif Caro ropinirole Roberto Pascal Allergies Allergy/AdvReac Type Severity Reaction Status Date / Time Iodinated Contrast Media Allergy Anaphylaxis Verified 10/25/24 14:23 [id number] Reductase Allergy Muscle Pain Verified 10/25/24 14:23 Inhibitor Discharge Plan Disposition Patient Disposition: Home, Self-Care Condition: Fair Follow up Plan Prescriptions/Medication Reconciliation: New ropinirole 2 mg Tablet 2 mg PO BID 30 Days Qty: 60 3RF nadolol 40 mg Tablet 40 mg PO DAILY 30 Days Qty: 30 3RF pantoprazole [Protonix] 40 mg tablet,delayed release (DR/EC) 40 mg PO BID 30 Days Qty: 60 0RF Continued isosorbide mononitrate 60 mg tablet extended release 24 hr 60 mg PO DAILY 30 Days Qty: 30 5RF lisinopril 10 mg tablet 10 mg PO DAILY Patient Comments: TAKE 1 TABLET BY MOUTH ONCE DAILY. escitalopram oxalate [Lexapro] 20 mg Tablet 20 mg PO DAILY pregabalin 200 mg capsule 200 mg PO BID Patient Comments: TAKE 1 CAPSULE BY MOUTH TWICE DAILY cholecalciferol (vitamin D3) [Vitamin D3] 25 mcg (1,000 unit) Tablet 25 mcg PO DAILY dapagliflozin propanediol [Farxiga] 10 mg tablet 10 mg PO DAILY Patient Comments: TAKE 1 TABLET BY MOUTH ONCE DAILY. Repatha SureClick 140 mg/mL pen injector 140 mg SQ DIRECTED Patient Comments: INJECT THE CONTENTS OF PEN SUBCUTANEOUSLY EVERY 2 WEEKS Rx Instructions: INJECT THE CONTENTS OF PEN SUBCUTANEOUSLY EVERY 2 WEEKS Mounjaro 10 mg/0.5 mL pen injector 10 mg SQ WEEKLY Patient Comments: INJECT 10 MG ONCE WEEKLY DIRECTED. cetirizine 10 mg Tablet 10 mg PO HS aspirin 81 mg Tablet,Delayed Release (Dr/Ec) 81 mg PO DAILY Qty: 30 0RF nitroglycerin 0.4 mg tablet, sublingual 0.4 mg sublingual Q5MINP PRN (Reason: chest pain) Rx Instructions: do not exceed 3 doses per episode Discontinued esomeprazole magnesium [Nexium] 40 mg capsule,delayed release(DR/EC) 40 mg PO DAILY Patient Comments: TAKE 1 CAPSULE BY MOUTH DAILY. ropinirole 0.5 mg tablet 1 mg PO BID Patient Comments: TAKE 1 (ONE) TABLET BY MOUTH TWO TIMES DAILY metoprolol succinate 25 mg Tablet Extended Release 24 Hr 25 mg PO DAILY 30 Days Qty: 30 0RF Problem Reconciliation Problems Reviewed?: Yes Patient Discharge Instructions Patient Instructions: DI for Angina, DI for Computed Tomography Angiography (CTA) Print Language: Salvadorean Providers Primary Care Provider: Patricia Hall Admit Provider: Yousif Caro Attending Provider: Yousif Caro
[2024-10-26 16:27] LABS: Iron 85 ug/dL (49-181)
[2024-10-26 17:03] LABS: Ferritin 54.8 ng/ml (17.9-464)
[2024-10-26 17:49] LABS: POC Glucose,Bedside 384 (70-110)
--- NOTE | 2024-10-26 17:49 | PC.NURSE ---
Patient complaining of chest soreness midsternal, does not radiate. VS normal, NSR on monitor, MD made aware, gi cocktail ordered
[2024-10-26] MEDS: BELLADONNA ALKALOIDS 60 ML ML PO (17:53)
--- NOTE | 2024-10-26 18:30 | PC.NURSE ---
Patient stated gi cocktail did not work, he still felt pressure but also felt better than when admitted. aware, ok to d/c home
--- NOTE | 2024-10-27 10:01 | SW/DCPLANNER ---
Spoke with patient on the phone. Patient stated that he is doing very well. Patient stated that he is aware of his upcoming appointments. Patient stated that he hasnt gotten his medicine picked up just yet from the pharmacy but is getting it today. Patient stated that he has no concerns or questions at this time. Claudia Garrett
== END 2024-10-26 18:35 | disposition home or self-care (01) ==
LOC: ER 14:07 → 2ND 14:10
PROVIDERS: Internal Medicine; Physician Assistant; Admitting Provider Student in an Organized Health Care Education/Training Program; Emergency Provider Student in an Organized Health Care Education/Training Program; PCP Nurse Practitioner Family; Visit Provider Student in an Organized Health Care Education/Training Program
DX: I25.110 Atherosclerotic heart disease of native coronary artery with unstable angina pectoris (principal); I10 Essential (primary) hypertension; E78.49 Other hyperlipidemia; Z88.8 Allergy status to other drugs, medicaments and biological substances; K21.9 Gastro-esophageal reflux disease without esophagitis; Z79.899 Other long term (current) drug therapy; Z79.85 Long-term (current) use of injectable non-insulin antidiabetic drugs; G25.81 Restless legs syndrome; Z91.041 Radiographic dye allergy status
CPT/HCPCS: 36415; 71046; 71275; 80048; 80053; 80061; 82728; 82962; 83540; 83735; 83880; 84145; 84484; 85025; 85378; 92978; 92979; 93005; 93458; 99152; 99153; 99285; C1725; C1769; G0378; J1200; J1644; J1650; J1885; J2250; J2919; J3010; J3475; Q9967; S0028